=== PATIENT | male | born 1955 | race Caucasian/White ===

== ENCOUNTER 2020-10-06 07:07 | Outpatient (CLI) | payer MEDICARE, OTHER, SELFPAY ==
[2020-10-06 08:14] LABS: Potassium 4.2 mmol/L (3.4-5.0)
[2020-10-06 08:15] LABS: Cholesterol 188 mg/dL (0-200); HDL Direct 51 mg/dL; Triglycerides 207 mg/dL (<150)
[2020-10-06 08:19] LABS: Anion Gap 6 mmol/L (8-16); Blood Urea Nitrogen 22 mg/dL (9-20); Calcium 9.4 mg/dL (8.4-10.2); Carbon Dioxide 33 mmol/L (22-30); Chloride 102 mmol/L (98-107); Estimated Glomerular Filt Rate > 60; Glucose 112 mg/dL (75-110); Sodium 141 mmol/L (137-145)
[2020-10-06 08:25] LABS: LDL Cholesterol Direct 39 mg/dL
[2020-10-06 08:46] LABS: Prostate Specific Antigen 0.8 ng/mL (< OR = 4.0)
== END 2020-10-06 07:08 | disposition home or self-care (01) ==
LOC: ANHLAB 07:09
PROVIDERS: Nurse Practitioner; PCP Internal Medicine; Visit Provider Internal Medicine
DX: Z12.5 Encounter for screening for malignant neoplasm of prostate (principal); E78.5 Hyperlipidemia, unspecified; I10 Essential (primary) hypertension
CPT/HCPCS: 36415; 80048; 80061; 84153; G0103

== ENCOUNTER → 2021-07-25 10:50 | Outpatient (CLI) | payer MEDICARE, OTHER, SELFPAY ==
--- NOTE | ~2021-07-25 | XR_ITS ---
EXAMINATION: XR chest 2V 07/25/2021 11:18 INDICATION: Dyspnea. Possible contact exposure. PROCEDURE: 2 view chest COMPARISON: 09/05/2005 FINDINGS: The lungs are clear. The cardiomediastinal silhouette is within normal limits. There are no pleural effusions. There is no pneumothorax suspected. IMPRESSION: 1: NO ACUTE CARDIOPULMONARY DISEASE. Reviewed, dictated and finalized at location A.
== END ==
PROVIDERS: PCP Internal Medicine; Visit Provider Internal Medicine
DX: Z77.29 Contact with and (suspected) exposure to other hazardous substances (principal)
CPT/HCPCS: 71046

== ENCOUNTER 2021-07-30 07:42 | Outpatient (CLI) | payer MEDICARE, OTHER, SELFPAY ==
--- NOTE | ~2021-07-30 | CT_ITS ---
EXAMINATION: CT abdomen pelvis wo con DATE: 07/30/2021 08:04 INDICATION: Abdominal pain TECHNIQUE: Computed tomography (CT) of the abdomen and pelvis was performed without intravenous contr ast. Automated exposure control and iterative reconstruction technique were employed. Exam dose: 854 .28 mGy-cm total exam DLP. COMPARISON: None. FINDINGS: The lung bases are clear. Normal heart size. No pericardial or pleural effusion. The liver, gallbladder, bile ducts, spleen, pancreas and pancreatic duct and adrenal glands are unrem arkable. There are multiple bilateral renal nonobstructing calculi, measuring 5 mm or less. 5.3 cm upper pole right renal cyst. Moderate prostate enlargement, moderate bladder wall thickening. Normal caliber and minimal calcification of the abdominal aorta. No intraperitoneal or retroperitonea l or pelvic mass lesion or adenopathy or ascites. Fat-containing umbilical hernia. Small fat-containing right inguinal hernia. Normal appendix. There are multiple left colonic diverticula; no evidence of diverticulitis. No bowel obstruction or intraperitoneal free air. T11 vertebral body benign hemangioma. Degenerative changes of the thoracic and lumbar spine including severe degenerative disc disease and associated mild retrolisthesis at L5-S1, degenerative change at the apophyseal joints with minimal grade 1 anterolisthesis at L4-5. No suspicious osteolytic or oste oblastic lesions. Bilateral hip osteoarthritis. IMPRESSION: Bilateral nephrolithiasis; no ureteral calculus or hydroureteronephrosis 5.3 cm upper pole right renal cyst Moderate prostate enlargement, bladder wall thickening Multiple left colonic diverticula; no CT evidence of diverticulitis Normal appendix Reviewed, dictated and finalized at Location A. Reviewed, dictated and finalized at location B. IMPRESSION: Bilateral nephrolithiasis; no ureteral calculus or hydroureteronep hrosis 5.3 cm upper pole right renal cyst Moderate prostate enlargement, bladder wall thickening Multiple left colonic diverticula; no CT evidence of diverticulitis Normal appendix
== END 2021-07-30 07:43 | disposition home or self-care (01) ==
LOC: ANHIMG 07:44
PROVIDERS: PCP Internal Medicine; Visit Provider Internal Medicine
DX: R10.9 Unspecified abdominal pain (principal)
CPT/HCPCS: 74176

== ENCOUNTER 2021-10-14 07:27 | Outpatient (CLI) | payer MEDICARE, OTHER, SELFPAY ==
[2021-10-14 09:18] LABS: Alanine Aminotransferase 39 U/L (4-50); Albumin Level 4.6 g/dL (3.5-5.1); Alkaline Phosphatase 59 U/L (38-126); Anion Gap 7 mmol/L (8-16); Aspartate Amino Transferase 38 U/L (17-59); Bilirubin,Total 0.6 mg/dL (0.2-1.3); Blood Urea Nitrogen 17 mg/dL (9-20); Calcium 9.5 mg/dL (8.4-10.2); Carbon Dioxide 30 mmol/L (22-30); Chloride 102 mmol/L (98-107); Cholesterol 186 mg/dL (0-200); Estimated Glomerular Filt Rate > 60; Glucose 115 mg/dL (65-110); HDL Direct 51 mg/dL; Sodium 139 mmol/L (137-145); Triglycerides 198 mg/dL (<150)
[2021-10-14 09:30] LABS: LDL Cholesterol Direct 44 mg/dL
[2021-10-14 09:49] LABS: Prostate Specific Antigen 1.8 ng/mL (< OR = 4.0)
== END 2021-10-14 07:28 | disposition home or self-care (01) ==
PROVIDERS: PCP Internal Medicine; Visit Provider Internal Medicine
DX: E78.5 Hyperlipidemia, unspecified (principal); I10 Essential (primary) hypertension; Z79.899 Other long term (current) drug therapy; Z12.5 Encounter for screening for malignant neoplasm of prostate
CPT/HCPCS: 36415; 80053; 80061; 84153; G0103

== ENCOUNTER → 2022-03-13 14:42 | Outpatient (CLI) | payer MEDICARE, OTHER, SELFPAY ==
--- NOTE | ~2022-03-13 | XR_ITS ---
XR hand LT min 3V DATE: 03/13/2022 14:55 INDICATION: Left hand pain TECHNIQUE: 3 views COMPARISON: December 22, 2016 left first digit FINDINGS: Diffuse osteopenia. There is severe osteoarthritic change at the first carpometacarpal joint. There is osteoarthritis at the triscaphe joint. There is mild osteoarthritis at the interphalangeal joints. Likely benign degenerative cyst of the distal capitate bone. No erosive change is evident. No fracture, dislocation, periosteal reaction or bone destruction or chondrocalcinosis. IMPRESSION: Polyarticular osteoarthritis, most pronounced at the first carpometacarpal joint Osteopenia Reviewed, dictated and finalized at location B. IMPRESSION: Polyarticular osteoarthritis, most pronounced at the first carpomet acarpal joint Osteopenia
== END ==
PROVIDERS: PCP Internal Medicine; Visit Provider Internal Medicine
DX: M79.646 Pain in unspecified finger(s) (principal); M19.042 Primary osteoarthritis, left hand; M85.88 Other specified disorders of bone density and structure, other site
CPT/HCPCS: 73130

== ENCOUNTER 2022-04-21 07:08 | Outpatient (CLI) | payer MEDICARE, OTHER, SELFPAY ==
[2022-04-21 08:36] LABS: Alanine Aminotransferase 33 U/L (6-50); Albumin Level 4.4 g/dL (3.5-5.1); Alkaline Phosphatase 50 U/L (38-126); Anion Gap 5 mmol/L (8-16); Aspartate Amino Transferase 35 U/L (17-59); Bilirubin,Total 0.7 mg/dL (0.2-1.3); Blood Urea Nitrogen 23 mg/dL (9-20); Calcium 8.4 mg/dL (8.4-10.2); Carbon Dioxide 28 mmol/L (22-30); Chloride 106 mmol/L (98-107); Estimated Glomerular Filt Rate > 60; Glucose 114 mg/dL (65-110); Sodium 139 mmol/L (137-145)
[2022-04-21 10:31] LABS: Hemoglobin A1C 5.6 % (<5.7)
== END 2022-04-21 07:09 | disposition home or self-care (01) ==
LOC: ANHLAB 07:12
PROVIDERS: PCP Internal Medicine; Visit Provider Nurse Practitioner
DX: R73.9 Hyperglycemia, unspecified (principal); I10 Essential (primary) hypertension; Z79.899 Other long term (current) drug therapy
CPT/HCPCS: 36415; 80053; 83036

== ENCOUNTER 2022-11-08 07:08 | Outpatient (CLI) | payer MEDICARE, OTHER, SELFPAY ==
[2022-11-08 08:03] LABS: Alanine Aminotransferase 48 U/L (6-50); Albumin Level 4.5 g/dL (3.5-5.1); Alkaline Phosphatase 61 U/L (38-126); Anion Gap 7 mmol/L (8-16); Aspartate Amino Transferase 35 U/L (17-59); Bilirubin,Total 0.8 mg/dL (0.2-1.3); Blood Urea Nitrogen 21 mg/dL (9-20); Carbon Dioxide 30 mmol/L (22-30); Chloride 105 mmol/L (98-107); Cholesterol 193 mg/dL (0-200); Estimated Glomerular Filt Rate > 60; Glucose 111 mg/dL (65-110); HDL Direct 52 mg/dL; Potassium 3.8 mmol/L (3.4-5.0); Sodium 142 mmol/L (137-145); Triglycerides 224 mg/dL (<150)
[2022-11-08 08:13] LABS: LDL Cholesterol Direct 39 mg/dL
[2022-11-08 08:54] LABS: Hemoglobin A1C 5.9 % (<5.7)
== END 2022-11-08 07:09 | disposition home or self-care (01) ==
PROVIDERS: PCP Internal Medicine; Visit Provider Internal Medicine
DX: Z12.5 Encounter for screening for malignant neoplasm of prostate (principal); R73.9 Hyperglycemia, unspecified; E78.5 Hyperlipidemia, unspecified; Z79.899 Other long term (current) drug therapy; I10 Essential (primary) hypertension
CPT/HCPCS: 36415; 80053; 80061; 83036; 84153; G0103

== ENCOUNTER 2023-11-21 07:24 | Outpatient (CLI) | payer MEDICARE, OTHER, SELFPAY ==
[2023-11-21 08:05] LABS: Basophils Percent Auto 0.5 % (0.2-1.2); Eosinophils Absolute Auto 0.1 K/mm3 (0-0.3); Hematocrit 45.3 % (42.0-52.0); Hemoglobin 14.5 g/dL (14.0-18.0); Immature Granulocyte Absolute 0.01 K/mm3 (0.00-0.031); Immature Granulocyte Percent A 0.2 % (0-0.5); Lymphocytes Absolute Auto 2.27 K/mm3 (0.9-3.2); Lymphocytes Percent Auto 35.3 % (18.3-44.2); Mean Corpuscular Hemoglobin 29.8 pg (26-34); Mean Platelet Volume 9.8 fl (7.4-10.4); Monocytes Absolute Auto 0.6 K/mm3 (0.1-0.6); Monocytes Percent Auto 9.5 % (2.6-8.5); Neutrophils Absolute Auto 3.4 K/mm3 (1.3-6.7); Neutrophils Percent Auto 52.5 % (45.5-73.1); Platelet Count Result 241 k/mm3 (150-375); Red Blood Count 4.87 M/mm3 (4.6-6.20); Red Cell Distribution Width 13.2 % (11.5-14.5); White Blood Count 6.4 K/mm3 (4.5-10.0)
[2023-11-21 08:18] LABS: Hemoglobin A1C 5.8 % (<5.7)
[2023-11-21 08:24] LABS: Alanine Aminotransferase 32 U/L (6-50); Albumin Level 4.2 g/dL (3.5-5.1); Alkaline Phosphatase 48 U/L (38-126); Anion Gap 6 mmol/L (8-16); Aspartate Amino Transferase 35 U/L (17-59); Bilirubin,Total 0.9 mg/dL (0.2-1.3); Blood Urea Nitrogen 21 mg/dL (9-20); Calcium 8.8 mg/dL (8.4-10.2); Carbon Dioxide 29 mmol/L (22-30); Chloride 107 mmol/L (98-107); Cholesterol 169 mg/dL (0-200); Estimated Glomerular Filt Rate > 60; Glucose 109 mg/dL (65-110); HDL Direct 54 mg/dL; Potassium 4.2 mmol/L (3.4-5.0); Sodium 142 mmol/L (137-145); Triglycerides 120 mg/dL (<150)
[2023-11-21 08:29] LABS: LDL Cholesterol Direct 57 mg/dL
== END 2023-11-21 07:25 | disposition home or self-care (01) ==
PROVIDERS: PCP Family Medicine; Visit Provider Nurse Practitioner Family
DX: Z13.0 Encounter for screening for diseases of the blood and blood-forming organs and certain disorders involving the immune mechanism (principal); Z13.228 Encounter for screening for other metabolic disorders; I10 Essential (primary) hypertension; Z13.220 Encounter for screening for lipoid disorders; Z12.5 Encounter for screening for malignant neoplasm of prostate; R73.9 Hyperglycemia, unspecified; Z68.28 Body mass index [BMI] 28.0-28.9, adult
CPT/HCPCS: 36415; 80053; 80061; 83036; 84153; 85025; G0103

== ENCOUNTER 2024-02-05 00:08 | Day surgery (SDC) | payer MEDICARE, OTHER, SELFPAY ==
[2024-01-25 12:03] VITALS: BMI 30.2
--- NOTE | 2024-02-03 14:20 | SUR.PREOP ---
Patient called regarding upcoming procedure. Voicemail left regarding appointment times.
[2024-02-05 07:03] VITALS: BP 117/66; PULSE 82; RESP 18; TEMP 36.4; O2SAT 97
[2024-02-05] MEDS: LACTATED RINGERS 1,000 ML 150 ML IV CONT (07:14)
--- NOTE | 2024-02-05 08:10 | WPDANESEPPF ---
Anes - Initial Pre Proc Eval Procedure: Operation Date: 02/05/24 08:30 Proposed Procedures p Colonoscopy - Daniele Maynard MD Date/Time: 02/05/24 08:10 Surgeon: Daniele Maynard MD Pre Op Diagnosis: Hemorrhage of anus and rectum Patient Data Age: 68 Gender: M Height: 1.78 m Weight: 90.1 kg Last Vital Signs Temp 97.5 F L 02/05/24 07:03 Pulse 82 02/05/24 07:03 Resp 18 02/05/24 07:03 BP 117/66 02/05/24 07:03 Pulse Ox 97 02/05/24 07:03 O2 Del Method Room Air 02/05/24 07:03 Allergies Allergy/AdvReac Type Severity Reaction Status Date / Time Iodinated Contrast Media Allergy Unknown Nausea Verified 02/05/24 07:00 iodine Allergy Unknown Nausea Verified 02/05/24 07:00 Iodine and Iodide Containing Allergy Unknown Nausea Verified 02/05/24 07:00 Produc ioversol Allergy Unknown Nausea Verified 02/05/24 07:00 Contrast Media AdvReac Intermediate NAUSEA Uncoded 02/05/24 07:00 Home Medications Medication Instructions Recorded Confirmed Type turmeric root extract 1,053 mg 1,076 mg PO DAILY 07/25/21 01/26/24 History tablet fluticasone propionate 0.05 % 1 applic topical BID #30 grams 04/25/22 01/26/24 Rx topical cream naproxen 375 mg tablet 375 mg PO BID PRN pain #180 tabs 11/07/22 01/26/24 Rx nystatin-triamcinolone 100,000 1 applic topical BID #60 grams 11/07/22 01/26/24 Rx unit/g-0.1 % topical cream [id number]-cxa-xdjmg 150 mcg-vit K1 1 tablet PO DAILY 05/14/23 01/26/24 History 30 mcg-lycop 300 mcg-lutein tablet (Centrum Minis Men 50 Plus) zinc acetate 50 mg (zinc) capsule 50 mg PO DAILY 05/14/23 01/26/24 History (Galzin) fluticasone propionate 50 2 spray intranasal DAILY #16 grams 05/25/23 01/26/24 Rx mcg/actuation nasal spray,suspension loratadine 10 mg tablet 10 mg PO DAILY #30 tabs 05/25/23 01/26/24 Rx amlodipine 5 mg tablet 5 mg PO DAILY #90 tabs 11/30/23 01/26/24 Rx famotidine 40 mg tablet (Pepcid) 40 mg PO DAILY #90 tabs 11/30/23 01/26/24 Rx valsartan 160 mg tablet 160 mg PO DAILY #90 tabs 11/30/23 01/26/24 Rx nystatin 100,000 unit/gram topical 1 applic topical TID #60 grams 01/26/24 02/05/24 Rx powder Patient hx anesthesia problems: none Family hx anesthesia problems: none Results Review: All pre-operative results and documents have been reviewed as part of the pre-operative evaluation. [facility] Past Medical History Medical History Acne Arthritis Cervicalgia Headache Right corneal abrasion Surgical History Surgical History History of hand surgery History of right knee surgery Hx of hemorrhoidectomy Family History Family History Father Hypertension Family history of chronic obstructive pulmonary disease Mother Hypertension Sibling Hypertension Grandparent Family history of heart disease in male family member before age 55 Other Family history of arthritis Family history of cardiovascular disease Social History Social History Smoking status: Never smoker Second hand tobacco smoke exposure: No Alcohol intake: current Drinks per week: 1 Alcohol use details: occasionally Substance use: never Substance use type: does not use Lack of Transportation: No Lack of Food: Never True Current Housing: I Have Housing Concerned About Future Housing: No Difficulty Paying Gas/Electric Bills: No Difficulty Paying for Meds: No Currently Unemployed: No Education: High School Diploma/GED Difficulty w/ Childcare or Family Care: No Living arrangements: with family Spiritual care concerns: No Anes - Eval Final PreProcedure Day of Procedure 02/05/24 08:10 Patient weight: normal Heart: regular rate and rhythm Lungs: clear to auscultation Airway: Mallampati scale
--- NOTE | 2024-02-05 08:30 | PM.HPGS ---
History of Present Illness History of Present Illness Consent: Risks, benefits, and alternatives have been discussed and questions answered. Patient agrees to proceed with procedure. Chief complaint: Hemorrhage of anus and rectum Narrative: Bart Beltran is a 68 year old male here for screening colonoscopy, last one 10 years ago Review of Systems Review of Systems: All systems reviewed & are unremarkable except as noted in HPI and below PMFSH Past Medical History Medical History Acne Arthritis Cervicalgia Headache Right corneal abrasion Surgical History Surgical History History of hand surgery History of right knee surgery Hx of hemorrhoidectomy Family History Family History Father Hypertension Family history of chronic obstructive pulmonary disease Mother Hypertension Sibling Hypertension Grandparent Family history of heart disease in male family member before age 55 Other Family history of arthritis Family history of cardiovascular disease Social History Social History Smoking status: Never smoker Second hand tobacco smoke exposure: No Alcohol intake: current Drinks per week: 1 Alcohol use details: occasionally Substance use: never Substance use type: does not use Lack of Transportation: No Lack of Food: Never True Current Housing: I Have Housing Concerned About Future Housing: No Difficulty Paying Gas/Electric Bills: No Difficulty Paying for Meds: No Currently Unemployed: No Education: High School Diploma/GED Difficulty w/ Childcare or Family Care: No Living arrangements: with family Spiritual care concerns: No Meds Home Medications and Allergies Home Medications Medication Instructions Recorded Confirmed Type turmeric root extract 1,053 mg 1,076 mg PO DAILY 07/25/21 01/26/24 History tablet fluticasone propionate 0.05 % 1 applic topical BID #30 grams 04/25/22 01/26/24 Rx topical cream naproxen 375 mg tablet 375 mg PO BID PRN pain #180 tabs 11/07/22 01/26/24 Rx nystatin-triamcinolone 100,000 1 applic topical BID #60 grams 11/07/22 01/26/24 Rx unit/g-0.1 % topical cream aqdlhglg-tsa-xyaex 150 mcg-vit K1 1 tablet PO DAILY 05/14/23 01/26/24 History 30 mcg-lycop 300 mcg-lutein tablet (Centrum Minis Men 50 Plus) zinc acetate 50 mg (zinc) capsule 50 mg PO DAILY 05/14/23 01/26/24 History (Galzin) fluticasone propionate 50 2 spray intranasal DAILY #16 grams 05/25/23 01/26/24 Rx mcg/actuation nasal spray,suspension loratadine 10 mg tablet 10 mg PO DAILY #30 tabs 05/25/23 01/26/24 Rx amlodipine 5 mg tablet 5 mg PO DAILY #90 tabs 11/30/23 01/26/24 Rx famotidine 40 mg tablet (Pepcid) 40 mg PO DAILY #90 tabs 11/30/23 01/26/24 Rx valsartan 160 mg tablet 160 mg PO DAILY #90 tabs 11/30/23 01/26/24 Rx nystatin 100,000 unit/gram topical 1 applic topical TID #60 grams 01/26/24 02/05/24 Rx powder Allergies Allergy/AdvReac Type Severity Reaction Status Date / Time Iodinated Contrast Media Allergy Unknown Nausea Verified 02/05/24 07:00 iodine Allergy Unknown Nausea Verified 02/05/24 07:00 Iodine and Iodide Containing Allergy Unknown Nausea Verified 02/05/24 07:00 Produc ioversol Allergy Unknown Nausea Verified 02/05/24 07:00 Contrast Media AdvReac Intermediate NAUSEA Uncoded 02/05/24 07:00 Vital Signs Vital Signs - 24 hr 02/05/24 07:03 Temperature 97.5 F L Pulse Rate 82 Respiratory Rate 18 Blood Pressure 117/66 Pulse Oximetry 97 Oxygen Delivery Room Air Exam Const: General: comfortable and no acute distress HENMT: Face/Nose/Sinus: Normal nares present Eyes: General: appearance normal, both eyes and all related structures Neck: Neck: no JVD Resp: Auscultation: clear to auscultation bila
[2024-02-05 08:46] VITALS: BP 99/65; PULSE 80; RESP 14; O2SAT 93
[2024-02-05 08:56] VITALS: BP 116/83; PULSE 79; RESP 22; O2SAT 98
[2024-02-05 09:06] VITALS: BP 117/84; PULSE 81; RESP 25; O2SAT 97
== END 2024-02-05 09:08 | disposition home or self-care (01) ==
PROVIDERS: PCP Nurse Practitioner; Visit Provider Internal Medicine Gastroenterology
PROC: 0DJD8ZZ Inspection of Lower Intestinal Tract, Via Natural or Artificial Opening Endoscopic (ICD-10-PCS; CPT 45378; principal; 2024-02-05 08:30)
DX: Z12.11 Encounter for screening for malignant neoplasm of colon (principal); D12.2 Benign neoplasm of ascending colon; K57.30 Diverticulosis of large intestine without perforation or abscess without bleeding; K64.8 Other hemorrhoids
CPT/HCPCS: 45385; 88305; J2704; J7120

== ENCOUNTER 2024-02-26 13:33 | Outpatient (CLI) | payer MEDICARE, OTHER, SELFPAY ==
--- NOTE | ~2024-02-26 | CT_ITS ---
EXAMINATION: CT abdomen pelvis wo con DATE: 02/26/2024 13:59 INDICATION: Abdominal pain TECHNIQUE: Computed tomography (CT) of the abdomen and pelvis was performed without intravenous contr ast. Automated exposure control and iterative reconstruction technique were employed. The dose-length product was 1011.73 mGy-cm. COMPARISON: 07/30/2021 FINDINGS: Lung bases are clear. Heart size normal. No pericardial or pleural effusion. Liver, gallbladder, sple en, pancreas and bilateral adrenal glands are normal. A couple right renal cysts the larger exophytic cyst measuring 6.5 cm the upper pole. Bilateral nonobstructing nephrolithiasis with couple 1 mm ston es in the right kidney and 3 stones measuring up to 2-2 mm at the lower pole of the left kidney. Ther e are few diverticula along the sigmoid colon without adjacent inflammatory change to suggest diverti culitis. The appendix is not visualized. No pericecal inflammatory change to suggest acute appendicit is. No bowel obstruction. Bladder is normal. Prostatomegaly measuring 4.8 x 3.4 cm. Small fat-contain ing right inguinal hernia. No free intraperitoneal gas or fluid. No pathologically enlarged abdominal or pelvic lymphadenopathy. Severe spondylosis of the lumbosacral junction with mild to moderate spon dylosis in the more cephalad lumbar and lower thoracic spine. T11 hemangioma. IMPRESSION: 1. No acute intra-abdominal/pelvic process. 2. Bilateral nonobstructing nephrolithiasis. 3. Mild sigmoid diverticulosis. 4. Prostatomegaly. Reviewed, dictated and finalized at location A.
== END 2024-02-26 13:34 | disposition home or self-care (01) ==
PROVIDERS: PCP Nurse Practitioner; Visit Provider Nurse Practitioner
DX: N20.0 Calculus of kidney (principal); K57.30 Diverticulosis of large intestine without perforation or abscess without bleeding; N40.0 Benign prostatic hyperplasia without lower urinary tract symptoms
CPT/HCPCS: 74176

== ENCOUNTER 2024-04-22 09:56 | Outpatient (CLI) | payer MEDICARE, OTHER, SELFPAY ==
--- NOTE | ~2024-04-22 | XR_ITS ---
XR hand RT min 3V Ordering provider: Latricia Rangel MD History: . M18.9 - Osteoarthritis of first carpometacarpal joint, un... . Comparison: None. FINDINGS: BONES: Minimal subluxation of the first metacarpal bone. status post removal of the trapezium is note d Clinical correlation advised. Otherwise, No acute fracture or dislocation. JOINT SPACES: Irregularity of the outline of the base of the first metacarpal bone is noted suggestiv e of osteoarthritic changes. Osteoarthritic changes also seen in the first metacarpophalangeal joint. Narrowing of the distal interphalangeal joint of the second, third, fourth and fifth fingers is also seen. SOFT TISSUES: Normal. IMPRESSION: No acute osseous abnormality right hand. Absent trapezium bone. Osteoarthritic changes. Reviewed, dictated and finalized at location A.
--- NOTE | ~2024-04-22 | XR_ITS ---
XR hand LT min 3V Ordering provider: Latricia Rangel MD History: . M18.9 - Osteoarthritis of first carpometacarpal joint, un... . Comparison: None. FINDINGS: BONES: No acute fracture or dislocation. JOINT SPACES: Narrowing of the first carpometacarpal joint suggestive of osteoarthritic changes. Mini mal narrowing of the proximal and distal interphalangeal joints suggestive of osteoarthritic changes. SOFT TISSUES: Unremarkable. IMPRESSION: No acute osseous abnormality left hand. Osteoarthritic changes. Reviewed, dictated and finalized at location A.
== END 2024-04-22 09:57 ==
LOC: MICIMG 09:59
PROVIDERS: PCP Internal Medicine; Visit Provider Plastic Surgery
DX: M19.041 Primary osteoarthritis, right hand (principal); M19.042 Primary osteoarthritis, left hand
CPT/HCPCS: 73130

== ENCOUNTER 2024-05-02 10:57 | Outpatient (CLI) | payer MEDICARE, OTHER, SELFPAY ==
--- NOTE | ~2024-05-02 | CT_ITS ---
EXAMINATION: CT UE LT wo con DATE: 05/02/2024 11:22 INDICATION: Left first carpometacarpal joint osteoarthritis. TECHNIQUE: Computed tomography (CT) of the left hand and wrist was performed without intravenous cont rast. Automated exposure control and iterative reconstruction technique were employed. The dose-lengt h product was 117.56 mGy-cm. COMPARISON: Left hand radiograph 04/22/2024 FINDINGS: Bone alignment is normal. No fracture. There is moderate osteoarthritis of distal radioulna r joint. There is moderate osteoarthritis of triscaphe joint and severe osteoarthritis of first carpo metacarpal joint. There is mild osteoarthritis of first metacarpophalangeal joint and second and thir d distal interphalangeal joints. There is a surgical tunnel in base of first metacarpal. IMPRESSION: 1. Polyarticular osteoarthritis. Reviewed, dictated and finalized at location A.
== END 2024-05-02 10:58 ==
PROVIDERS: PCP Plastic Surgery; Visit Provider Plastic Surgery
DX: M18.12 Unilateral primary osteoarthritis of first carpometacarpal joint, left hand (principal)
CPT/HCPCS: 73200

== ENCOUNTER 2024-05-26 07:25 | Outpatient (CLI) | payer MEDICARE, OTHER, SELFPAY ==
[2024-05-26 08:56] LABS: Hematocrit 44.1 % (42.0-52.0); Hemoglobin 14.5 g/dL (14.0-18.0); Mean Corpuscular HGB Conc 32.9 g/dl (32-36); Mean Corpuscular Hemoglobin 30.7 pg (26-34); Mean Corpuscular Volume 93.2 fl (80-100); Mean Platelet Volume 10.2 fl (7.4-10.4); Platelet Count Result 224 k/mm3 (150-375); Red Blood Count 4.73 M/mm3 (4.6-6.20); Red Cell Distribution Width 13.5 % (11.5-14.5); White Blood Count 5.2 K/mm3 (4.5-10.0)
[2024-05-26 09:26] LABS: LDL Cholesterol Direct 43 mg/dL
[2024-05-26 09:46] LABS: Alanine Aminotransferase 27 U/L (6-50); Anion Gap 8 mmol/L (4-12); Bilirubin,Total 0.7 mg/dL (0.2-1.3); Blood Urea Nitrogen 27 mg/dL (9-20); Calcium 8.6 mg/dL (8.4-10.2); Carbon Dioxide 30 mmol/L (22-30); Chloride 103 mmol/L (98-107); Cholesterol 156 mg/dL (0-200); Estimated Glomerular Filt Rate > 60; Glucose 102 mg/dL (65-110); HDL Direct 51 mg/dL; Sodium 141 mmol/L (137-145); Triglycerides 103 mg/dL (<150)
[2024-05-26 09:50] LABS: Albumin Level 4.4 g/dL (3.5-5.1); Alkaline Phosphatase 39 U/L (38-126); Aspartate Amino Transferase 35 U/L (17-59)
== END 2024-05-26 07:26 | disposition home or self-care (01) ==
PROVIDERS: PCP Internal Medicine; Visit Provider Nurse Practitioner
DX: Z12.5 Encounter for screening for malignant neoplasm of prostate (principal); G47.33 Obstructive sleep apnea (adult) (pediatric); I10 Essential (primary) hypertension; K21.9 Gastro-esophageal reflux disease without esophagitis; K62.5 Hemorrhage of anus and rectum; R73.9 Hyperglycemia, unspecified; Z68.30 Body mass index [BMI] 30.0-30.9, adult; Z99.89 Dependence on other enabling machines and devices; Z79.899 Other long term (current) drug therapy
CPT/HCPCS: 36415; 80053; 80061; 83036; 84153; 85027; G0103

== ENCOUNTER 2024-08-24 07:26 | Outpatient (CLI) | payer MEDICARE, SELFPAY ==
--- NOTE | 2024-08-24 07:50 | ECG_ITS ---
Test Date: 2024-08-24 07:57:40 Measurements Intervals [place] Rate: 66 P: 15 CA: 195 QRS: 6 QRSD: 97 T: 39 QT: 391 QTc: 412 Interpretive Statements SINUS RHYTHM NORMAL ECG No previous ECG available for comparison Electronically Signed On 08-24-2024 10:23:37 CDT by Kenneth Lombardi M.D.
[2024-08-24 07:54] LABS: Add Urine Microscopic? NO; Appearance Urine Clear (Clear); Bilirubin Urine Negative (Negative); Blood Urine Negative (Negative); Color Urine Yellow (Yellow); Glucose Urine UA Negative (Negative); Ketones Urine Negative (Negative); Leukocyte Esterase Ur Negative LEU/UL (Negative); Nitrate Urine Negative (Negative); Protein Urine Negative (Negative); Specific Grav Ur 1.012 (1.001-1.035); Urobilinogen Urine 0.2 mg/dL (<2.0); pH Urine 6.5 (5.0-9.0)
[2024-08-24 07:59] LABS: Basophils Percent Auto 0.5 % (0.2-1.2); Eosinophils Absolute Auto 0.2 K/mm3 (0-0.3); Eosinophils Percent Auto 2.5 % (0-4.4); Hematocrit 43.5 % (42.0-52.0); Hemoglobin 14.4 g/dL (14.0-18.0); Immature Granulocyte Absolute 0.02 K/mm3 (0.00-0.031); Immature Granulocyte Percent A 0.3 % (0-0.5); Lymphocytes Absolute Auto 2.28 K/mm3 (0.9-3.2); Lymphocytes Percent Auto 37.3 % (18.3-44.2); Mean Corpuscular HGB Conc 33.1 g/dl (32-36); Mean Corpuscular Hemoglobin 30.4 pg (26-34); Mean Corpuscular Volume 91.8 fl (80-100); Mean Platelet Volume 9.7 fl (7.4-10.4); Monocytes Absolute Auto 0.6 K/mm3 (0.1-0.6); Monocytes Percent Auto 10.1 % (2.6-8.5); Neutrophils Percent Auto 49.3 % (45.5-73.1); Platelet Count Result 251 k/mm3 (150-375); Red Blood Count 4.74 M/mm3 (4.6-6.20); Red Cell Distribution Width 13.2 % (11.5-14.5); White Blood Count 6.1 K/mm3 (4.5-10.0)
[2024-08-24 08:00] LABS: Anion Gap 8 mmol/L (4-12); Blood Urea Nitrogen 25 mg/dL (9-20); Calcium 9.5 mg/dL (8.4-10.2); Carbon Dioxide 30 mmol/L (22-30); Chloride 102 mmol/L (98-107); Estimated Glomerular Filt Rate > 60; Glucose 112 mg/dL (65-110); Potassium 4.1 mmol/L (3.4-5.0); Sodium 140 mmol/L (137-145)
== END 2024-08-24 07:27 | disposition home or self-care (01) ==
LOC: ANHLAB 07:29
PROVIDERS: PCP Internal Medicine; Visit Provider Orthopaedic Surgery
DX: R53.83 Other fatigue (principal); I10 Essential (primary) hypertension; R73.9 Hyperglycemia, unspecified; G47.33 Obstructive sleep apnea (adult) (pediatric); Z99.89 Dependence on other enabling machines and devices; Z79.899 Other long term (current) drug therapy
CPT/HCPCS: 36415; 80048; 81003; 85025; 93005

== ENCOUNTER 2024-10-18 14:47 | Outpatient (CLI) | payer MEDICARE, OTHER, SELFPAY ==
--- NOTE | ~2024-10-18 | XR_ITS ---
XR forearm LT 2V Ordering provider: Chalo Gómez DO History: . M79.602 - Pain in left arm . Comparison: None. FINDINGS: BONES: No acute fracture or dislocation. JOINT SPACES: Narrowing of the radiocarpal joint. SOFT TISSUES: Normal. IMPRESSION: No acute osseous abnormality left forearm. Reviewed, dictated and finalized at location A. [employer]CH[employer]ICIAN
== END 2024-10-18 14:48 | disposition home or self-care (01) ==
PROVIDERS: PCP Internal Medicine; Visit Provider Internal Medicine
DX: M79.602 Pain in left arm (principal)
CPT/HCPCS: 73090

== ENCOUNTER 2024-11-03 11:46 | Outpatient (CLI) | payer MEDICARE, OTHER, SELFPAY ==
[2024-11-03 13:22] LABS: Basophils Percent Auto 0.6 % (0.2-1.2); Eosinophils Absolute Auto 0.2 K/mm3 (0-0.3); Eosinophils Percent Auto 2.5 % (0-4.4); Hematocrit 43.6 % (42.0-52.0); Hemoglobin 14.6 g/dL (14.0-18.0); Immature Granulocyte Absolute 0.02 K/mm3 (0.00-0.031); Immature Granulocyte Percent A 0.3 % (0-0.5); Mean Corpuscular HGB Conc 33.5 g/dl (32-36); Mean Corpuscular Hemoglobin 30.3 pg (26-34); Mean Corpuscular Volume 90.5 fl (80-100); Mean Platelet Volume 9.3 fl (7.4-10.4); Monocytes Absolute Auto 0.7 K/mm3 (0.1-0.6); Monocytes Percent Auto 10.8 % (2.6-8.5); Neutrophils Absolute Auto 3.5 K/mm3 (1.3-6.7); Neutrophils Percent Auto 52.8 % (45.5-73.1); Platelet Count Result 230 k/mm3 (150-375); Red Blood Count 4.82 M/mm3 (4.6-6.20); White Blood Count 6.7 K/mm3 (4.5-10.0)
[2024-11-03 13:30] LABS: Add Urine Microscopic? NO; Appearance Urine Clear (Clear); Bilirubin Urine Negative (Negative); Blood Urine Negative (Negative); Color Urine Yellow (Yellow); Glucose Urine UA Negative (Negative); Ketones Urine Negative (Negative); Leukocyte Esterase Ur Negative LEU/UL (Negative); Nitrate Urine Negative (Negative); Protein Urine Negative (Negative); Specific Grav Ur 1.016 (1.001-1.035); Urobilinogen Urine 0.2 mg/dL (<2.0); pH Urine 6.5 (5.0-9.0)
[2024-11-03 13:35] LABS: INR 0.9
[2024-11-03 13:36] LABS: Partial Thromboplastin Time 32.9 Seconds (22.3-36.8)
[2024-11-03 13:39] LABS: Albumin Level 4.4 g/dL (3.5-5.1); Anion Gap 3 mmol/L (4-12); Blood Urea Nitrogen 19 mg/dL (9-20); Calcium 9.4 mg/dL (8.4-10.2); Carbon Dioxide 32 mmol/L (22-30); Chloride 104 mmol/L (98-107); Estimated Glomerular Filt Rate > 60; Glucose 87 mg/dL (65-110); Sodium 139 mmol/L (137-145)
[2024-11-03 13:45] LABS: Hemoglobin A1C 5.9 % (<5.7)
[2024-11-03 14:33] LABS: MRSA (PCR) NOT DETECTED (NOT DETECTE)
[2024-11-03 18:17] LABS: Urine Cotinine NEGATIVE
== END 2024-11-03 11:47 | disposition home or self-care (01) ==
PROVIDERS: PCP Internal Medicine; Visit Provider Orthopaedic Surgery
DX: Z01.812 Encounter for preprocedural laboratory examination (principal); M17.12 Unilateral primary osteoarthritis, left knee; Z79.899 Other long term (current) drug therapy
CPT/HCPCS: 80048; 80307; 81003; 82040; 83036; 85025; 85610; 85730; 86850; 86900; 86901; 87641

== ENCOUNTER 2024-11-18 02:00 | Inpatient (IN) | payer MEDICARE, OTHER, SELFPAY ==
[2024-11-03 12:13] VITALS: BP 138/86; PULSE 69; RESP 16; TEMP 36.1; O2SAT 100; BMI 29.5
--- NOTE | 2024-11-03 12:32 | PC.NURSE ---
Addendum entered by Harika Gilmore RN 11/03/24 12:39: Pt aware surgery time is 10:30am on 11/16/24 Original Note: Report to the Outpatient Waiting Room, entrance under the green pavilion located off [facility], at time __0830am on date __11/16/24 . Planned Procedure Time: .? Time changes happen often and if your time is changed the preop area will call you the afternoon before. - You and your visitor will be asked to self-screen and do not enter if you have any COVID symptoms. Please call surgeon if you need to reschedule. - A mask is optional within the hospital at this time. Patients may have clear liquids (water, carbonated beverages, clear teas, apple juice) until 3 hours prior to surgery with a maximum of 20 ounces. - No food from midnight until time of surgery and no smoking. This includes no chewing gum, candy or mints. (0730am) Take only the following medications with a SIP of water on the morning of surgery: ____Amlodipine and Tylenol if needed DO NOT STOP ANY OF YOUR OTHER PRESCRIPTION MEDICATIONS PRIOR TO SURGERY EXCEPT THE FOLLOWING Medications to discontinue per physician Hold all vitamins, supplements, NSAIDS ( motrin, aleve, Naproxyn)[address] Edwards Date to take last dose___11/08/24 Please no make-up, nail syrian, hairspray, perfume, deodorant, or body powder the day of surgery.? No jewelry (including any body piercings) or valuables the day of surgery, leave them at home.? Please take a shower or bath the night before, or the morning of, surgery with an antibacterial soap.? Wear comfortable, loose fitting clothing.?Hibicleanse scrub per - Jewelry must be removed prior to entering the operating room.? Rings and piercings that are not removed may be cut off. - The hospital will not accept responsibility for valuables.? - Please leave all valuables, including medications, at home the day of surgery. If you are going home after surgery, a licensed train driver must drive you home.? - NO public transportation without another adult if you receive anesthesia. - We recommend that an adult stay with you for 24 hours following discharge. - We also recommend that you do not drive, make important decision, drink alcoholic beverages, or take any drugs that were not prescribed by your health care provider for at least 24 hours after your discharge time. Follow any additional instructions given to you from your surgeon. Telephone instructions given to ___Patient and asked if any additional questions and then verbalized understanding. Patient advised to call surgeon office or pre surgery nurse liaison [phone] if any additional questions.
[2024-11-16] VITALS (10 sets, daily range): BP systolic 119–140; BP diastolic 76–94; PULSE 76–109; RESP 12–18; TEMP 36.1–36.8; O2SAT 93–99
--- NOTE | 2024-11-16 07:14 | WPDHPUPDATE1 ---
History and Physical Update Update Date/Time: 11/16/24 07:14 History and Physical has been reviewed, including an updated exam of the patient. There are NO changes in the patient's condition. Risks, benefits, and alternatives have been discussed and questions answered. Patient agrees to proceed with procedure.
[2024-11-16] MEDS: LACTATED RINGERS 1,000 ML 30 ML IV CONT ×2 (09:00→14:25)
[2024-11-16] MEDS: ACETAMINOPHEN 500 MG TABLET 1000 MG PO (09:00)
[2024-11-16] MEDS: TRANEXAMIC ACID 1,000MG/ISO100 1,000 MG/100 ML BAG 200 MG IVPB (09:59)
--- NOTE | 2024-11-16 11:43 | WPDANESPNB ---
Anes - Peripheral Nerve Block Date/Time: 11/16/24 11:43 I have discussed with the patient/family/POA the placement of a peripheral nerve block for post-operative pain management, including associated risks, benefits, complications, and side effects. Alternative methods of post-operative analgesia were detailed. Questions were solicited and answers provided to the satisfaction of the patient/family/POA. Time-Out: A pre-procedural Time-Out was completed immediately before starting the procedure and confirmed: Patient Identification, Site, Procedure, Patient Position and the Availability of Requisite Equipment. Clinical Indications: Acute post-operative pain management requested by the operative surgeon. Nerve Block Insertion Note Anes-nerve block: adductor canal left Patient position: supine Skin prep: chlorhexidine Needle: 22 gauge, stimulating, insulated echogenic needle. Needle length: 80 mm Technique: ultrasound Injectate: other (Bupiv 0.5% 15 mls. ) Observations: tolerated well Complications: none Procedure start time:: 1135 Procedure end time:: 1141
--- NOTE | 2024-11-16 11:48 | P.PNAN_ITS ---
Anes - Initial Pre Proc Eval Procedure: Operation Date: 11/16/24 10:30 Proposed Procedures p Left Total Knee Arthroplasty - Ramón Edwards MD Date/Time: 11/16/24 11:48 Surgeon: Ramón Edwards MD Pre Op Diagnosis: Lt Knee DJD Patient Data Age: 69 Gender: M Height: 1.78 m Weight: 91.2 kg Last Vital Signs Temp 97.7 F 11/16/24 08:30 Pulse 76 11/16/24 08:30 Resp 16 11/16/24 08:30 BP 130/77 11/16/24 08:30 Pulse Ox 99 11/16/24 08:30 O2 Del Method Room Air 11/16/24 08:30 Allergies Allergy/AdvReac Type Severity Reaction Status Date / Time Iodinated Contrast Media Allergy Intermediate Nausea Verified 11/16/24 09:47 iodine Allergy Intermediate Nausea Verified 11/16/24 09:47 Iodine and Iodide Containing Allergy Intermediate Nausea Verified 11/16/24 09:47 Produc ioversol Allergy Unknown Nausea Verified 11/16/24 09:47 Contrast Media AdvReac Intermediate NAUSEA Uncoded 11/10/24 13:21 Home Medications ?Medication ?Instructions ?Recorded ?Confirmed ?Type turmeric root extract 1,053 mg 1,076 mg PO DAILY 07/25/21 11/16/24 History tablet nystatin-triamcinolone 100,000 1 applic topical BID #60 grams 11/07/22 11/03/24 Rx unit/g-0.1 % topical cream pgpinspu-pew-ezeos 150 mcg-vit K1 1 tablet PO DAILY 05/14/23 11/16/24 History 30 mcg-lycop 300 mcg-lutein tablet (Centrum Minis Men 50 Plus) zinc acetate 50 mg (zinc) capsule 50 mg PO DAILY 05/14/23 11/16/24 History (Galzin) amlodipine 5 mg tablet 5 mg PO DAILY #90 tabs 04/26/24 11/16/24 Rx famotidine 40 mg tablet (Pepcid) 40 mg PO DAILY #90 tabs 04/26/24 11/16/24 Rx valsartan 160 mg tablet 160 mg PO DAILY #90 tabs 04/26/24 11/16/24 Rx acetaminophen 500 mg tablet 500 mg PO Q6H PRN pain 11/03/24 11/16/24 History (Tylenol Extra Strength) chlorhexidine gluconate 4 % 1 applic topical DAILY #237 mL 11/03/24 11/16/24 Rx topical liquid (Hibiclens) Patient hx anesthesia problems: none Family hx anesthesia problems: none Results Review: All pre-operative results and documents have been reviewed as part of the pre- operative evaluation. [facility] Past Medical History Medical History Left wrist sprain Essential (primary) hypertension Hyperglycemia Osteoarthritis of first carpometacarpal joint Left knee DJD Acne Arthritis Cervicalgia Headache Right corneal abrasion Surgical History Surgical History Hx of hemorrhoidectomy History of right knee surgery History of hand surgery Family History Family History Father Hypertension Family history of chronic obstructive pulmonary disease Mother Hypertension Sibling Hypertension Emphysema of lung Grandparent Family history of heart disease in male family member before age 55 Other Family history of arthritis Family history of cardiovascular disease Social History Social History Smoking status: Never smoker Second hand tobacco smoke exposure: Yes Additional smoking assessment comments: Denies any nicotine in system Alcohol intake: current Drinks per week: 1 Alcohol use details: occasionally Substance use: never Substance use type: does not use Do You Feel Safe in your Home?: Yes Lack of Transportation: No Lack of Food: Never True Current Housing: I Have Housing Concerned About Future Housing: No Difficulty Paying Gas/Electric Bills: No Difficulty Paying for Meds: No Currently Unemployed: No Education: High School Diploma/GED Difficulty w/ Childcare or Family Care: No Living arrangements: with family Additional living arrangements comments: Occupation/Education: retired Additional occupation/education comments: [employer] Gender identity (if verbalized by the patient): Male Spiritual care concerns: No Anes - Eval Final PreProcedure Day of Procedure 11/16/24 11:48 Patient weight: obese Heart: regular rate and rhythm Lungs: clear to auscultation Airway: Mallampati scale class III Neurological: alert and oriented Last oral intake: >/= 8 hours ASA classification: III Emergent: no Anesthetic plan: proceed Anesthesia type and monitoring: general LMA and standard monitoring Results Review: All pre-operative results and documents have been reviewed as part of the pre- operative evaluation. HTN, CARLOS on CPAP, setting 12. Informed Consent: The patient's anesthetic plan and its attendant risks and benefits were discussed with the patient/family/POA. Questions were solicited and answers provided to the satisfaction of the patient/family/POA.
[2024-11-16] MEDS: ceFAZolin 2 GM/D5W 50 ML 2 GM/50 ML BAG IVPB ×2 (12:25→21:19)
[2024-11-16] MEDS: SODIUM CHLORIDE 0.9% IV 37.7 ML, MORPHINE SULFATE INJ (*CRX) 2 MG, ROPivacaine HCL 1% 2... INFILTRATE (12:45)
[2024-11-16] MEDS: TRANEXAMIC ACID 1,000 MG/10 ML AMPUL 1000 MG IV PUSH (13:42)
--- NOTE | 2024-11-16 14:26 | P.OP_ITS ---
Procedure Note - Detailed Date of Procedure 11/16/24 Pre-op Diagnosis Lt Knee DJD Post-op Diagnosis Same Procedure Performed L TKA Surgeon Ramón Edwards MD Anesthesia General Description of Procedure THE LEFT KNEE WAS PREPPED AND DRAPED IN THE STERILE FASHION. THERE WAS A10 DEGREE FLEXION CONTRACTURE. A MIDLINE SKIN INCISION WAS MADE. A MEDIAL PARAPATELLAR ARTHROTOMY WAS MADE. THE PATELLA WAS EVERTED. THERE WAS TRICOMPARTMENT DJD. THERE WAS MINIMAL PATELLA DJD. AN INTRAMEDULLARY ABRAHAM WAS PLACED IN THE FEMUR. A DISTAL FEMORAL CUT WAS MADE IN 5 DEGREES OF VALGUS REMOVING APPROXIMATELY 9 MM OF BONE FROM THE DISTAL FEMUR. THE FEMUR WAS SIZED TO 65. A 65 FEMORAL CUTTING BLOCK WAS PLACED IN 3 DEGREES OF EXTERNAL ROTATION AND IN ALIGNMENT WITH YANDEL'S LINE AND THE TRANSEPICONDYLAR AXIS. ANTERIOR POSTERIOR AND CHAMFER CUTS WERE MADE. THE CUTS WERE EXCELLENT. NEXT AN INTRAMEDULLARY CUTTING GUIDE WAS PLACED IN THE TIBIA. A TRANS TIBIAL CUT WAS MADE ALONG THE LONG AXIS OF THE TIBIA. APPROXIMATELY 10 MM OF BONE WAS REMOVED FROM THE HIGH SIDE OF THE TIBIA. THE TIBIA WAS THEN PLANED TO A SMOOTH SURFACE. POSTERIOR FEMORAL OSTEOPHYTES WERE REMOVED FROM THE FEMORAL CONDYLES. A 71 TIBIAL TRIAL WAS PLACED IN ALIGNMENT WITH THE 1/3 MEDIAL ASPECT OF THE TIBIAL TUBERCLE. THEN A 65 FEMORAL TRIAL COMPONENT WAS PLACED. BOTH HAD EXCELLENT FITS. EVENTUALLY A 10 MM CR POLYETHYLENE TRIAL COMPONENT WAS PLACED. THE KNEE WAS TAKEN THROUGH A RANGE OF MOTION. THE KNEE CAME OUT TO FULL EXTENSION. THERE WAS NO ABNORMAL TILT TO THE PATELLA. THERE WAS GOOD A/P AND VARUS/VALGUS STABILITY. THERE WAS NO EXCESSIVE ROLL BACK WITH FLEXION. THE TRIAL COMPONENTS WERE REMOVED. THEN A 65 FEMORAL COMPONENT AND 71 TIBIAL COMPONENT WITH A 10 CR POLYETHYLENE COMPONENT WERE CEMENTED INTO PLACE. ONCE THE CEMENT WAS HARD THE KNEE WAS TAKEN THROUGH A ROM AGAIN AND FOUND TO BE STABLE WITH NO PATELLA TILT N O EXCESSIVE ROLL BACK WITH FLEXION AND GOOD STABILITY WITH COMPLETE AND FULL EXTENSION. THE KNEE WAS IRRIGATED WITH STERILE WATER FOR ABOUT 3 MINUTES. THE BLEEDERS WERE CAUTERIZED. THE ARTHROTOMY WAS REPAIRED WITH NUMBER 1 VICRYL. THE SUB CUTANEOUS LAYER WITH 2-0 VICRYL AND THE SKIN WITH PARKER. THE WOUND WAS WASHED AND A STERILE DRESSING WAS APPLIED. PATIENT WAS EXTUBATED. Estimated Blood Loss -150.0 Pathology None sent Complications No immediate complications Condition Stable Disposition PACU
[2024-11-16] MEDS: fentaNYL CITRATE INJ (*CRX) 100 MCG/2 ML VIAL 25 MCG IV PUSH ×4 (14:40→14:53)
[2024-11-16] MEDS: oxyCODONE/ACETAMINOPHEN (*CRX) 10-325 MG TABLET 1 TAB PO (16:19)
[2024-11-16] MEDS: SENNA/DOCUSATE SODIUM TABLET 2 TAB PO (16:20)
--- NOTE | 2024-11-16 16:36 | ADMGEN ---
This patient, Bart Beltran, was admitted to [facility] Surg Room 324-02. Patient/family oriented to hospital policies and general routines including ID bracelet, bed and alarms, visiting hours, pain management, procedures, bathroom and other care routines, personal items, smoking policy, room service/diet, and visiting hours. Information on how to activate the Rapid Response Team has been discussed. Patient/Family are encouraged to report perceived risks to care and to ask questions if they do not understand what they are told or what they should do. Post-op LTKA admitted at 1600
[2024-11-16] MEDS: KETOROLAC 15 MG/ML VIAL (*BKC) IV PUSH ×2 (17:35→23:13)
[2024-11-16] MEDS: ASPIRIN 325 MG ENTERIC TABLET PO (21:19)
[2024-11-17] VITALS (8 sets, daily range): BP systolic 120–132; BP diastolic 60–80; PULSE 71–93; RESP 10–20; TEMP 36.2–36.8; O2SAT 93–99
[2024-11-17] MEDS: KETOROLAC 15 MG/ML VIAL (*BKC) IV PUSH ×3 (05:04→16:43)
[2024-11-17] MEDS: ceFAZolin 2 GM/D5W 50 ML 2 GM/50 ML BAG IVPB ×2 (05:04→12:43)
[2024-11-17 06:39] LABS: Basophils Percent Auto 0.3 % (0.2-1.2); Eosinophils Percent Auto 0.4 % (0-4.4); Hematocrit 38.9 % (42.0-52.0); Hemoglobin 12.8 g/dL (14.0-18.0); Immature Granulocyte Absolute 0.03 K/mm3 (0.00-0.031); Immature Granulocyte Percent A 0.3 % (0-0.5); Lymphocytes Absolute Auto 1.47 K/mm3 (0.9-3.2); Lymphocytes Percent Auto 14.8 % (18.3-44.2); Mean Corpuscular HGB Conc 32.9 g/dl (32-36); Mean Corpuscular Volume 91.3 fl (80-100); Mean Platelet Volume 9.6 fl (7.4-10.4); Monocytes Absolute Auto 1.4 K/mm3 (0.1-0.6); Monocytes Percent Auto 14.1 % (2.6-8.5); Neutrophils Percent Auto 70.1 % (45.5-73.1); Platelet Count Result 222 k/mm3 (150-375); Red Blood Count 4.26 M/mm3 (4.6-6.20); Red Cell Distribution Width 13.1 % (11.5-14.5)
[2024-11-17 06:52] LABS: Anion Gap 7 mmol/L (4-12); Blood Urea Nitrogen 17 mg/dL (9-20); Calcium 8.4 mg/dL (8.4-10.2); Carbon Dioxide 28 mmol/L (22-30); Chloride 104 mmol/L (98-107); Estimated CRCL calculation 87 ml/min; Estimated Glomerular Filt Rate > 60; Glucose 97 mg/dL (65-110); Potassium 3.7 mmol/L (3.4-5.0); Sodium 139 mmol/L (137-145)
[2024-11-17] MEDS: oxyCODONE/ACETAMINOPHEN (*CRX) 10-325 MG TABLET 1 TAB PO (08:28)
[2024-11-17] MEDS: MULTIVITAMINS /C LUTEIN (CENTRUM SILVER) TABLET *BKC 1 TAB PO (08:29)
[2024-11-17] MEDS: FAMOTIDINE 20 MG TABLET 40 MG PO (08:29)
[2024-11-17] MEDS: SENNA/DOCUSATE SODIUM TABLET 2 TAB PO ×2 (08:29→16:42)
[2024-11-17] MEDS: amLODIPine BESYLATE 5 MG TABLET PO (08:29)
[2024-11-17] MEDS: polyethylene glycoL 3350 17 GM POWD.PACK PO (08:29)
[2024-11-17] MEDS: ASPIRIN 325 MG ENTERIC TABLET PO ×2 (08:30→20:21)
--- NOTE | 2024-11-17 09:12 | P.PNOP_ITS ---
Progress Note: A&P Assessment and Plan (1) Status post total left knee replacement: Code(s): Z96.652 - Presence of left artificial knee joint Status: Acute Assessment and Plan: POD #1 : Left TKA Continue PT/OT. WBAT. Walker. HIGH FALL RISK. Continue pain control. Ice Knee. Protect skin. DVT prophylaxis with Aspirin. SCDs. Incentive Spirometry Use reviewed. Monitor Dressing. Change prior to discharge. Bowel Regimen. Dispo: Home with Home Health pending progress with PT/OT Time Spent With Patient Time: Reviewed history, exam, radiographs and current labs with attending MD and covering surgeon, Dr. Edwards, who agrees with current plan as indicated above. No further recommendations from Dr. Edwards at this time. Subjective Subjective Date/Time Seen: 11/17/24 09:12 Post Op day: 1 Interval history: POD #1: Left TKA Patient doing well. Pain well controlled. No new concerns. Hopeful for d/c home today. Review of Systems Review of Systems: All systems reviewed & are unremarkable except as noted in HPI and below Constitutional: Constitutional: Denies fever(s) and Denies headache(s) ENT: Denies headache(s) Cardiovascular: Cardiovascular: Denies chest pain, Denies diaphoresis, Denies palpitations and Denies dyspnea Respiratory: Respiratory: Denies dyspnea Gastrointestinal: Gastrointestinal: Denies abdominal pain, Denies constipation, Denies nausea and Denies vomiting Genitourinary: Genitourinary: Denies dysuria and Reports nocturia Musculoskeletal: Musculoskeletal: Reports arthralgias (Left Knee ), Reports joint swelling (Left Knee ) and Reports limited range of motion (ROM limited due to recent surgical intervention LEFT Knee ) Neurologic: Denies headache(s) Endocrine: Endocrine: Denies palpitations Exam Const: General: comfortable and no acute distress Resp: Effort & Inspection: normal respiratory effort Cardio: Rate: regular rate Rhythm: regular rhythm GI: GI Palp: Yes Soft to palpation, No Tenderness to palpation present (GI) and No Guarding due to palpation present (GI) Skin: General skin exam: wounds noted (see extremity assessment ) Wounds: wounds noted (see extremity assessment ) Neuro: Cognition (Neuro): normal cognition Other: NV intact aside from block. Moves toes. Sensation intact to light touch. +ankle dorsiflexion/plantarflexion. Extrem: Left lower extremity: normal to inspection, normal capillary refill, knee Details: tenderness (diffuse ) Location: of the patella, swelling (moderate consistent to recent surgery ), abnormal ROM (limited due to recent surgery ) Details: pain with active ROM and pain with passive ROM and ecchymosis (as expected with recent surgery. NO hematoma. ), lower leg (Negative Brenda's Sign ), ankle (+ankle dorsiflexion/plantarflexion ) Details: normal to inspection, no edema and normal ROM; no tenderness and no swelling and foot Details: normal capillary refill, toes with normal ROM, vascular exam Details: dorsalis pedis pulse present and motor-sensory exam light-touch normal; no tenderness Other: Incision left TKA dressing c/d/i. No hematoma. No signs of infection. No wound dehiscence. Psych: Mental Status: mental status grossly normal Objective Data Vital Signs Vital Signs: Vital Signs - 24 hr 11/16/24 14:25 11/16/24 14:40 11/16/24 14:55 Temperature 36.1 C L Pulse Rate 109 H 97 89 Respiratory Rate 12 12 12 Blood Pressure 140/94 H 132/78 131/82 Pulse Oximetry 96 98 97 Oxygen Delivery Simple Face Mask Simple Face Mask Simple Face Mask Oxygen Flow Rate 6 6 6 11/16/24 15:00 11/16/24 15:10 11/16/24 15:25 Temperature Pulse Rate 92 94 Respiratory Rate 12 14 Blood Pressure 125/87 129/76 Pulse Oximetry 93 95 Oxygen Delivery Room Air Room Air Nasal Cannula Oxygen Flow Rate 2 11/16/24 15:40 11/16/24 16:00 11/16/24 17:12 Temperature 36.1 C L 36.8 C 36.4 C L Pulse Rate 95 91 95 Respiratory Rate 16 18 18 Blood Pressure 119/80 135/86 138/86 Pulse Oximetry 95 98 99 Oxygen Delivery Nasal Cannula Oxygen Flow Rate 2 11/16/24 21:29 11/17/24 00:17 11/17/24 01:29 Temperature 36.6 C 36.2 C L Pulse Rate 97 93 71 Respiratory Rate 13 15 14 Blood Pressure 127/77 132/80 Pulse Oximetry 98 97 99 Oxygen Delivery CPAP Oxygen Flow Rate 11/17/24 05:00 11/17/24 05:29 Temperature 36.4 C L Pulse Rate 73 Respiratory Rate 10 L 12 Blood Pressure 125/68 Pulse Oximetry 94 Oxygen Delivery CPAP Oxygen Flow Rate Intake/Output Intake/Output: Intake & Output 11/14/24 11/15/24 11/16/24 11/17/24 23:59 23:59 23:59 23:59 Intake Total 640 550 Output Total 175 Balance 465 550 Meds/Results Medications: Active Medications Generic Name Dose Route Start Last Admin Trade Name Freq PRN Reason Stop Dose Admin Acetaminophen 500 mg 11/16/24 15:44 Acetaminophen 500 Mg Tablet PO Q6H PRN Pain Rated 1-3 Amlodipine Besylate 5 mg 11/17/24 09:00 11/17/24 08:29 Amlodipine Besylate 5 Mg Tablet PO 5 mg DAILY DIOGENES Administration Aspirin 325 mg 11/16/24 21:00 11/17/24 08:30 Aspirin 325 Mg Enteric Tablet PO 325 mg Q12HR DIOGENES Administration Chlorhexidine Gluconate 1 applic 11/17/24 09:00 Chlorhexidine Gluconate 4% Mar 120 Ml Btl TOPICAL DAILY DIOGENES Diazepam 5 mg 11/16/24 15:44 Diazepam (*Crx) 5 Mg Tablet PO Q8H PRN Spasms Diphenhydramine HCl 25 mg 11/16/24 15:44 Diphenhydramine Hcl Inj 50 Mg/Ml Vial IV PUSH Q6H PRN Itching Famotidine 40 mg 11/17/24 09:00 11/17/24 08:29 Famotidine 20 Mg Tablet PO 40 mg DAILY DIOGENES Administration Hydromorphone HCl 1 mg 11/16/24 15:44 Hydromorphone Hcl Inj (*Crx) 1 Mg/Ml Syr IV PUSH Q2H PRN Breakthrough Pain Rated 7-10 or NPO Hydromorphone HCl 0.5 mg 11/16/24 15:44 Hydromorphone Hcl Inj (*Crx) 1 Mg/Ml Syr IV PUSH Q2H PRN Breakthrough Pain Rated 4-6 or NPO Cefazolin Sodium 2 gm in 50 mls @ 100 mls/hr 11/16/24 21:00 11/17/24 05:04 Ancef 2 Gm/D5w 50 Ml IVPB 11/17/24 13:29 100 mls/hr Q8H DIOGENES Administration Ibuprofen 800 mg in 200 mls @ 400 mls/hr 11/16/24 15:44 Caldolor 800 Mg/200 Ml IVPB Q6H PRN Breakthrough Pain Rated 1-3 or NPO Ketorolac Tromethamine 15 mg 11/16/24 18:00 11/17/24 05:04 Ketorolac 15 Mg/Ml Vial (*Bkc) IV PUSH 11/17/24 18:01 15 mg Q6HR DIOGENES Administration Miscellaneous Information 1 each 11/16/24 00:01 Chlorhexidine Says Use For 7 Days Prior To Proceddure. It Seems Like Patient Had Procedure XX 12/16/24 00:00 CLARIFY DIOGENES Multivitamins/Minerals 1 tab 11/17/24 09:00 11/17/24 08:29 Multivitamins /C Lutein (Centrum Silver) Tablet *Bkc PO 1 tab QAM DIOGENES Administration Naloxone HCl 0.1 mg 11/16/24 15:44 Naloxone Hcl 0.4 Mg/Ml Vial IV PUSH Q2M PRN Opiate Reversal Ondansetron HCl 4 mg 11/16/24 15:44 Ondansetron Inj 4 Mg/2 Ml Vial IV PUSH Q4H PRN Nausea And Vomiting Oxycodone/Acetaminophen 1 tablet 11/16/24 15:44 Oxycodone/Acetaminophen (*Crx) 5-325 Mg Tablet PO Q4H PRN Pain Rated 4-6 Oxycodone/Acetaminophen 1 tab 11/16/24 15:44 11/17/24 08:28 Oxycodone/Acetaminophen (*Crx) 10-325 Mg Tablet PO 1 tab Q6H PRN Administration Pain Rated 7-10 Polyethylene Glycol 17 gm 11/17/24 09:00 11/17/24 08:29 Polyethylene Glycol 3350 17 Gm Powd.Pack PO 17 gm QAM [facility] Administration Senna/Docusate Sodium 2 tab 11/16/24 17:00 11/17/24 08:29 Senna/Docusate Sodium Tablet PO 2 tab BID [facility] Administration Valsartan 160 mg 11/17/24 09:00 Valsartan 160 Mg Tablet PO DAILY [facility] Zinc Sulfate 220 mg 11/17/24 09:00 Zinc Sulfate 220 Mg Capsule PO 12/17/24 08:59 DAILY [facility] Radiology Results: ITS Impressions Knee X-Ray 11/16/24 14:33 IMPRESSION: 1. Recent left total knee arthroplasty. Labs Labs: Laboratory Results - last 24 hr 11/17/24 06:17 WBC 10.0 RBC 4.26 L Hgb 12.8 L Hct 38.9 L MCV 91.3 MCH 30.0 MCHC 32.9 RDW 13.1 Plt Count 222 MPV 9.6 Immature Gran % (Auto) 0.3 Neut % (Auto) 70.1 Lymph % (Auto) 14.8 L [place] % (Auto) 14.1 H Eos % (Auto) 0.4 Baso % (Auto) 0.3 Lymph # (Auto) 1.47 [place] # (Auto) 1.4 H Eos # (Auto) 0.0 Baso # (Auto) 0.0 Abs Immat Gran (auto) 0.03 Absolute Neuts (auto) 7.0 H Absolute Nucleated RBC 0.000 Nucleated RBC % 0.0 Sodium 139 Potassium 3.7 Chloride 104 Carbon Dioxide 28 Anion Gap 7 BUN 17 Creatinine 0.71 Estim Creat Clear Calc 87 Estimated GFR > 60 Glucose 97 Calcium 8.4 Quality VTE Prophylaxis VTE prophylaxis: pharmacologic ordered
[2024-11-17] MEDS: ZINC SULFATE 220 MG CAPSULE PO (12:44)
[2024-11-17 14:30] LABS: Glucose Point of Care 118 mg/dl (65-105)
--- NOTE | 2024-11-17 14:34 | WPDANESPN ---
Anes - Prog Note Post-Op Date/Time: 11/17/24 14:34 Vital Signs: Last Vital Signs Temp 36.8 C 11/17/24 13:29 Pulse 75 11/17/24 13:29 Resp 20 11/17/24 13:29 BP 121/66 11/17/24 13:29 Pulse Ox 95 11/17/24 13:29 O2 Del Method CPAP 11/17/24 05:00 O2 Flow Rate 2 11/16/24 15:40 Pain Score (VAS): 3 I/O: Intake & Output 11/16/24 11/17/24 11/17/24 23:59 07:59 15:59 Intake Total 290 600 240 Balance 290 600 240 Laboratory Tests 11/17/24 06:17 11/17/24 06:17 11/17/24 11/17/24 06:17 14:25 WBC 10.0 RBC 4.26 L Hgb 12.8 L Hct 38.9 L MCV 91.3 MCH 30.0 MCHC 32.9 RDW 13.1 Plt Count 222 MPV 9.6 Immature Gran % (Auto) 0.3 Neut % (Auto) 70.1 Lymph % (Auto) 14.8 L [place] % (Auto) 14.1 H Eos % (Auto) 0.4 Baso % (Auto) 0.3 Lymph # (Auto) 1.47 [place] # (Auto) 1.4 H Eos # (Auto) 0.0 Baso # (Auto) 0.0 Abs Immat Gran (auto) 0.03 Absolute Neuts (auto) 7.0 H Absolute Nucleated RBC 0.000 Nucleated RBC % 0.0 Sodium 139 Potassium 3.7 Chloride 104 Carbon Dioxide 28 Anion Gap 7 BUN 17 Creatinine 0.71 Estim Creat Clear Calc 87 Estimated GFR > 60 Glucose 97 POC Capillary Glucose 118 H Calcium 8.4 Patient Feedback: Patient satisfied with anesthetic care.
--- NOTE | 2024-11-17 15:58 | PC.NURSE ---
Pt working with PT on the stair step outside of his room. PT called this RN to state pt clammy, diaphoretic, and not responding well with a BP of 60s/30s, after he was returned to bed. Manual BP obtained 2 minutes later showed 70s/50s. Grace's office called. Spoke with Dr. Edwards. 1L NS given at 500 mls/hr. Discontinued IV dilaudid and oxycodone 10. Will keep over night to ensure pt BP stable, as well as trend vitals and obtain orthos q shift.
[2024-11-17] MEDS: oxyCODONE/ACETAMINOPHEN (*CRX) 5-325 MG TABLET 1 TABLET PO (20:20)
[2024-11-18] VITALS (9 sets, daily range): BP systolic 85–141; BP diastolic 54–80; PULSE 84–126; RESP 14–20; TEMP 36.7–37.4; O2SAT 93–97
--- NOTE | ~2024-11-18 | XR_ITS ---
EXAMINATION: [id number] DATE: 11/16/2024 14:33 QUALITY CONTROL MICROBIOLOGIST INDICATION: Left total knee arthroplasty TECHNIQUE: 2 views left knee FINDINGS: There is a left total knee arthroplasty in expected position. Subcutaneous gas with fluid and air in the joint and overlying skin ari are consistent with recent surgery. No evidence of pe riprosthetic fracture. IMPRESSION: 1. Recent left total knee arthroplasty. Reviewed, dictated and finalized at location A. ITY CONTROL MICROBIOLOGIST
[2024-11-18] MEDS: oxyCODONE/ACETAMINOPHEN (*CRX) 5-325 MG TABLET 1 TABLET PO ×2 (06:03→20:03)
[2024-11-18] MEDS: polyethylene glycoL 3350 17 GM POWD.PACK PO (08:15)
[2024-11-18] MEDS: MULTIVITAMINS /C LUTEIN (CENTRUM SILVER) TABLET *BKC 1 TAB PO (08:15)
[2024-11-18] MEDS: FAMOTIDINE 20 MG TABLET 40 MG PO (08:15)
[2024-11-18] MEDS: ASPIRIN 325 MG ENTERIC TABLET PO ×2 (08:15→20:03)
[2024-11-18] MEDS: amLODIPine BESYLATE 5 MG TABLET PO (08:15)
[2024-11-18] MEDS: ZINC SULFATE 220 MG CAPSULE PO (08:15)
[2024-11-18] MEDS: SENNA/DOCUSATE SODIUM TABLET 2 TAB PO ×2 (08:15→17:21)
[2024-11-18] MEDS: VALSARTAN 160 MG TABLET PO (08:16)
--- NOTE | 2024-11-18 09:11 | PM.PNORT ---
Progress Note: A&P Assessment and Plan (1) Status post total left knee replacement: Code(s): Z96.652 - Presence of left artificial knee joint Status: Acute Assessment and Plan: POD #2: Left TKA +orthostatics yesterday. Recheck today. Labs stable. Continue PT/OT. WBAT. Walker. HIGH FALL RISK. Continue pain control. Ice Knee. Protect skin. DVT prophylaxis with Aspirin. SCDs. Incentive Spirometry Use reviewed. Monitor Dressing. Change prior to discharge. Bowel Regimen. Dispo: Home with Home Health pending progress with PT/OT Time Spent With Patient Time: Reviewed history, exam, radiographs and current labs with attending MD and covering surgeon, Dr. Edwards, who agrees with current plan as indicated above. No further recommendations from Dr. Edwards at this time. Subjective Subjective Date/Time Seen: 11/18/24 09:11 Post Op day: 2 Interval history: POD #2: Left TKA Patient was unable to be discharged yesterday due to low BP, requiring bolus. Today patient continues to feel light headed and has positive orthostatic vitals. Pain well controlled. Slow progress with PT/OT this AM. Review of Systems Review of Systems: All systems reviewed & are unremarkable except as noted in HPI and below Constitutional: Constitutional: Denies fever(s) and Denies headache(s) ENT: Denies headache(s) Cardiovascular: Cardiovascular: Denies chest pain, Denies diaphoresis, Denies palpitations and Denies dyspnea Respiratory: Respiratory: Denies dyspnea Gastrointestinal: Gastrointestinal: Denies abdominal pain, Denies constipation, Denies nausea and Denies vomiting Genitourinary: Genitourinary: Denies dysuria and Reports nocturia Musculoskeletal: Musculoskeletal: Reports arthralgias (Left Knee ), Reports joint swelling (Left Knee ) and Reports limited range of motion (ROM limited due to recent surgical intervention LEFT Knee ) Neurologic: Denies headache(s) Endocrine: Endocrine: Denies palpitations Objective Data Vital Signs Vital Signs: Vital Signs - 24 hr 11/17/24 09:29 11/17/24 13:29 11/17/24 17:29 Temperature 36.8 C 36.8 C 36.8 C Pulse Rate 75 75 80 Respiratory Rate 20 20 20 Blood Pressure 121/66 121/66 120/60 Pulse Oximetry 95 95 96 Oxygen Delivery 11/17/24 20:00 11/17/24 22:29 11/18/24 00:19 Temperature 36.9 C Pulse Rate 85 84 Respiratory Rate 19 20 Blood Pressure 115/65 Pulse Oximetry 93 94 Oxygen Delivery Room Air CPAP 11/18/24 03:30 11/18/24 06:39 Temperature 36.7 C Pulse Rate 104 H Respiratory Rate 20 Blood Pressure 141/69 H Pulse Oximetry 95 Oxygen Delivery CPAP Intake/Output Intake/Output: Intake & Output 11/15/24 11/16/24 11/17/24 11/18/24 23:59 23:59 23:59 23:59 Intake Total 640 1200 Output Total 175 Balance 465 1200 Meds/Results Medications: Active Medications Generic Name Dose Route Start Last Admin Trade Name Freq PRN Reason Stop Dose Admin Acetaminophen 500 mg 11/16/24 15:44 Acetaminophen 500 Mg Tablet PO Q6H PRN Pain Rated 1-4 Amlodipine Besylate 5 mg 11/17/24 09:00 11/18/24 08:15 Amlodipine Besylate 5 Mg Tablet PO 5 mg DAILY DIOGENES Administration Aspirin 325 mg 11/16/24 21:00 11/18/24 08:15 Aspirin 325 Mg Enteric Tablet PO 325 mg Q12HR DIOGENES Administration Diazepam 5 mg 11/16/24 15:44 Diazepam (*Crx) 5 Mg Tablet PO Q8H PRN Spasms Diphenhydramine HCl 25 mg 11/16/24 15:44 Diphenhydramine Hcl Inj 50 Mg/Ml Vial IV PUSH Q6H PRN Itching Famotidine 40 mg 11/17/24 09:00 11/18/24 08:15 Famotidine 20 Mg Tablet PO 40 mg DAILY DIOGENES Administration Ibuprofen 800 mg in 200 mls @ 400 mls/hr 11/16/24 15:44 Caldolor 800 Mg/200 Ml IVPB Q6H PRN Breakthrough Pain Rated 1-3 or NPO Multivitamins/Minerals 1 tab 11/17/24 09:00 11/18/24 08:15 Multivitamins /C Lutein (Centrum Silver) Tablet *Bkc PO 1 tab QAM DIOGENES Administration Naloxone HCl 0.1 mg 11/16/24 15:44 Naloxone Hcl 0.4 Mg/Ml Vial IV PUSH Q2M PRN Opiate Reversal Ondansetron HCl 4 mg 11/16/24 15:44 Ondansetron Inj 4 Mg/2 Ml Vial IV PUSH Q4H PRN Nausea And Vomiting Oxycodone/Acetaminophen 1 tablet 11/16/24 15:44 11/18/24 06:03 Oxycodone/Acetaminophen (*Crx) 5-325 Mg Tablet PO 1 tablet Q4H PRN Administration Pain Rated 5-10 Polyethylene Glycol 17 gm 11/17/24 09:00 11/18/24 08:15 Polyethylene Glycol 3350 17 Gm Powd.Pack PO 17 gm QAM DIOGENES Administration Senna/Docusate Sodium 2 tab 11/16/24 17:00 11/18/24 08:15 Senna/Docusate Sodium Tablet PO 2 tab BID DIOGENES Administration Valsartan 160 mg 11/17/24 09:00 11/18/24 08:16 Valsartan 160 Mg Tablet PO 160 mg DAILY DIOGENES Administration Zinc Sulfate 220 mg 11/17/24 09:00 11/18/24 08:15 Zinc Sulfate 220 Mg Capsule PO 12/17/24 08:59 220 mg DAILY DIOGENES Administration Radiology Results: ITS Impressions Knee X-Ray 11/16/24 14:33 IMPRESSION: 1. Recent left total knee arthroplasty. Labs Labs: Laboratory Results - last 24 hr 11/17/24 14:25 POC Capillary Glucose 118 H
[2024-11-18 09:39] LABS: Basophils Percent Auto 0.4 % (0.2-1.2); Eosinophils Absolute Auto 0.1 K/mm3 (0-0.3); Eosinophils Percent Auto 0.7 % (0-4.4); Hematocrit 35.6 % (42.0-52.0); Hemoglobin 11.5 g/dL (14.0-18.0); Immature Granulocyte Absolute 0.02 K/mm3 (0.00-0.031); Immature Granulocyte Percent A 0.3 % (0-0.5); Lymphocytes Absolute Auto 1.28 K/mm3 (0.9-3.2); Lymphocytes Percent Auto 16.9 % (18.3-44.2); Mean Corpuscular HGB Conc 32.3 g/dl (32-36); Mean Corpuscular Hemoglobin 29.8 pg (26-34); Mean Corpuscular Volume 92.2 fl (80-100); Mean Platelet Volume 9.4 fl (7.4-10.4); Monocytes Absolute Auto 1.5 K/mm3 (0.1-0.6); Monocytes Percent Auto 19.5 % (2.6-8.5); Neutrophils Absolute Auto 4.7 K/mm3 (1.3-6.7); Neutrophils Percent Auto 62.2 % (45.5-73.1); Platelet Count Result 200 k/mm3 (150-375); Red Blood Count 3.86 M/mm3 (4.6-6.20); Red Cell Distribution Width 13.2 % (11.5-14.5); White Blood Count 7.6 K/mm3 (4.5-10.0)
[2024-11-18 09:52] LABS: Anion Gap 6 mmol/L (4-12); Blood Urea Nitrogen 24 mg/dL (9-20); Carbon Dioxide 29 mmol/L (22-30); Chloride 102 mmol/L (98-107); Estimated CRCL calculation 85 ml/min; Estimated Glomerular Filt Rate > 60; Glucose 154 mg/dL (65-110); Potassium 3.7 mmol/L (3.4-5.0); Sodium 137 mmol/L (137-145)
[2024-11-18] MEDS: SODIUM CHLORIDE 0.9% IV 500 ML IV CONT (15:25)
[2024-11-18] MEDS: ACETAMINOPHEN 500 MG TABLET PO (15:25)
[2024-11-19] VITALS (10 sets, daily range): BP systolic 87–132; BP diastolic 57–85; PULSE 92–121; RESP 14–18; TEMP 36.5–37.6; O2SAT 94–98
[2024-11-19 07:37] LABS: Hematocrit 34.2 % (42.0-52.0); Mean Corpuscular HGB Conc 32.2 g/dl (32-36); Mean Corpuscular Hemoglobin 29.6 pg (26-34); Mean Corpuscular Volume 92.2 fl (80-100); Platelet Count Result 205 k/mm3 (150-375); Red Blood Count 3.71 M/mm3 (4.6-6.20); Red Cell Distribution Width 13.2 % (11.5-14.5); White Blood Count 9.6 K/mm3 (4.5-10.0)
[2024-11-19 07:50] LABS: Anion Gap 4 mmol/L (4-12); Blood Urea Nitrogen 18 mg/dL (9-20); Calcium 8.4 mg/dL (8.4-10.2); Carbon Dioxide 30 mmol/L (22-30); Chloride 102 mmol/L (98-107); Estimated CRCL calculation 95 ml/min; Estimated Glomerular Filt Rate > 60; Glucose 120 mg/dL (65-110); Potassium 3.6 mmol/L (3.4-5.0); Sodium 136 mmol/L (137-145)
[2024-11-19] MEDS: FAMOTIDINE 20 MG TABLET 40 MG PO (09:33)
[2024-11-19] MEDS: SENNA/DOCUSATE SODIUM TABLET 2 TAB PO ×2 (09:33→17:26)
[2024-11-19] MEDS: ASPIRIN 325 MG ENTERIC TABLET PO ×2 (09:33→20:19)
[2024-11-19] MEDS: ZINC SULFATE 220 MG CAPSULE PO (09:33)
[2024-11-19] MEDS: MULTIVITAMINS /C LUTEIN (CENTRUM SILVER) TABLET *BKC 1 TAB PO (09:33)
[2024-11-19] MEDS: oxyCODONE/ACETAMINOPHEN (*CRX) 5-325 MG TABLET 1 TABLET PO ×2 (09:34→20:19)
[2024-11-19] MEDS: polyethylene glycoL 3350 17 GM POWD.PACK PO (09:35)
--- NOTE | 2024-11-19 14:37 | PM.PNORT ---
Progress Note: A&P Assessment and Plan (1) Status post total left knee replacement: Code(s): Z96.652 - Presence of left artificial knee joint Status: Acute Assessment and Plan: POD 3 IMPROVING BUT CONTINUES TO HAVE ORTHOSTATIC HYPOTENSION. RECOMMEND INTERNAL MEDICINE CONSULT. HE HAS A STABLE HGB. HE WILL HAVE PT HE CAN TOLERATE. (2) Orthostatic hypotension: Code(s): I95.1 - Orthostatic hypotension Status: Acute Subjective Subjective Date/Time Seen: 11/19/24 14:37 Interval history: POD 3 IMPROVING. HE IS STILL HAVING BOUTS OF ORTHOSTATIC PROBLEMS DESPITE HOLDING BP MEDS AND PAIN MEDS. HE HAS SYMPTOMS WELL AND FEELS HE WILL FALL. HE DENIES ANY CHEST PAIN OR SOB. DENIES ANY CALF PAIN OR SIGNIFICANT THIGH PAIN Exam Extrem: Other: VSS AFEBRILE DRESSING DRY [place] INTACT NEG HOMANS SIGN CALF AND THIGH ARE SOFT WITH MINIMAL TENDERNESS. Objective Data Vital Signs Vital Signs: Vital Signs - 24 hr 11/18/24 20:00 11/18/24 20:00 11/18/24 20:48 Temperature 37.1 C Pulse Rate 103 H 110 H Respiratory Rate 14 16 Blood Pressure 129/61 119/63 Pulse Oximetry 93 94 Oxygen Delivery Room Air 11/18/24 20:52 11/19/24 00:52 11/19/24 04:00 Temperature 36.5 C 36.8 C Pulse Rate 117 H 94 102 H Respiratory Rate 16 14 16 Blood Pressure 117/60 131/63 127/71 Pulse Oximetry 97 96 96 Oxygen Delivery 11/19/24 08:00 11/19/24 09:00 11/19/24 09:00 Temperature 37.6 C H 37.3 C Pulse Rate 99 108 H 109 H Respiratory Rate 15 18 Blood Pressure 126/75 130/85 115/75 Pulse Oximetry 94 98 Oxygen Delivery 11/19/24 09:00 11/19/24 09:03 11/19/24 11:23 Temperature 37.4 C Pulse Rate 118 H 121 H 99 Respiratory Rate 15 Blood Pressure 112/69 87/57 L 120/78 Pulse Oximetry 95 Oxygen Delivery Intake/Output Intake/Output: Intake & Output 11/16/24 11/17/24 11/18/24 11/19/24 23:59 23:59 23:59 23:59 Intake Total 640 1200 1200 858 Output Total 175 Balance 465 1200 1200 858 Meds/Results Medications: Active Medications Generic Name Dose Route Start Last Admin Trade Name Freq PRN Reason Stop Dose Admin Acetaminophen 500 mg 11/16/24 15:44 11/18/24 15:25 Acetaminophen 500 Mg Tablet PO 500 mg Q6H PRN Administration Pain Rated 1-4 Amlodipine Besylate 5 mg 11/17/24 09:00 11/19/24 09:35 Amlodipine Besylate 5 Mg Tablet PO Not Given DAILY DIOGENES Aspirin 325 mg 11/16/24 21:00 11/19/24 09:33 Aspirin 325 Mg Enteric Tablet PO 325 mg Q12HR DIOGENES Administration Diazepam 5 mg 11/16/24 15:44 Diazepam (*Crx) 5 Mg Tablet PO Q8H PRN Spasms Diphenhydramine HCl 25 mg 11/16/24 15:44 Diphenhydramine Hcl Inj 50 Mg/Ml Vial IV PUSH Q6H PRN Itching Famotidine 40 mg 11/17/24 09:00 11/19/24 09:33 Famotidine 20 Mg Tablet PO 40 mg DAILY DIOGENES Administration Ibuprofen 800 mg in 200 mls @ 400 mls/hr 11/16/24 15:44 Caldolor 800 Mg/200 Ml IVPB Q6H PRN Breakthrough Pain Rated 1-3 or NPO Multivitamins/Minerals 1 tab 11/17/24 09:00 11/19/24 09:33 Multivitamins /C Lutein (Centrum Silver) Tablet *Bkc PO 1 tab QAM DIOGENES Administration Naloxone HCl 0.1 mg 11/16/24 15:44 Naloxone Hcl 0.4 Mg/Ml Vial IV PUSH Q2M PRN Opiate Reversal Ondansetron HCl 4 mg 11/16/24 15:44 Ondansetron Inj 4 Mg/2 Ml Vial IV PUSH Q4H PRN Nausea And Vomiting Oxycodone/Acetaminophen 1 tablet 11/16/24 15:44 11/19/24 09:34 Oxycodone/Acetaminophen (*Crx) 5-325 Mg Tablet PO 1 tablet Q4H PRN Administration Pain Rated 5-10 Polyethylene Glycol 17 gm 11/17/24 09:00 11/19/24 09:35 Polyethylene Glycol 3350 17 Gm Powd.Pack PO 17 gm QAM DIOGENES Administration Senna/Docusate Sodium 2 tab 11/16/24 17:00 11/19/24 09:33 Senna/Docusate Sodium Tablet PO 2 tab BID DIOGENES Administration Valsartan 160 mg 11/17/24 09:00 11/19/24 09:34 Valsartan 160 Mg Tablet PO Not Given DAILY DIOGENES Zinc Sulfate 220 mg 11/17/24 09:00 11/19/24 09:33 Zinc Sulfate 220 Mg Capsule PO 12/17/24 08:59 220 mg DAILY DIOGENES Administration Radiology Results: ITS Impressions Knee X-Ray 11/16/24 14:33 IMPRESSION: 1. Recent left total knee arthroplasty. Labs Labs: Laboratory Results - last 24 hr 11/19/24 06:47 WBC 9.6 RBC 3.71 L Hgb 11.0 L Hct 34.2 L MCV 92.2 MCH 29.6 MCHC 32.2 RDW 13.2 Plt Count 205 MPV 10.0 Sodium 136 L Potassium 3.6 Chloride 102 Carbon Dioxide 30 Anion Gap 4 BUN 18 Creatinine 0.65 L Estim Creat Clear Calc 95 Estimated GFR > 60 Glucose 120 H Calcium 8.4
--- NOTE | 2024-11-19 18:35 | P.CONIM_ITS ---
Assessment and Plan Assessment and plan (1) Degenerative joint disease of left knee: Code(s): M17.12 - Unilateral primary osteoarthritis, left knee Status: Acute Assessment and Plan: Postoperative day 3 status post left total knee arthroplasty. Wound care, pain control, and DVT prophylaxis deferred to primary service. (2) Orthostatic hypotension: Code(s): I95.1 - Orthostatic hypotension Status: Acute Assessment and Plan: Etiology not entirely clear but could be medication related. He is eating and drinking normally and had minimal drop in hemoglobin. Hold amlodipine and valsartan for now and discontinue p.r.n. diphenhydramine and diazepam. Initiate fall precautions and monitor orthostatic vital signs Q shift. Start normal saline and add knee-high Elkin hose. (3) Gastroesophageal reflux disease: Code(s): K21.9 - Gastro-esophageal reflux disease without esophagitis Status: Acute Assessment and Plan: Continue famotidine. Plan Thank you for allowing us to participate in this patient's care. Please do not hesitate to contact us with any questions. HPI Date of Consult Consult date: 11/19/24 Requesting Physician: Ramón Edwards MD Primary Care Provider: Chalo Gómez DO Consult Narrative Reason for consult: orthostatic hypotension Narrative: This is a 69-year-old male with osteoarthritis and hypotension who is postoperative day 3 from a left total knee replacement whom the hospitalist service has been consulted for ongoing issues with orthostatic hypotension. He presented for elective knee replacement due to ongoing pain despite conservative treatment. His surgery was performed under general anesthesia with no immediate complications documented an estimated blood loss of 150 mL. He began having issues with orthostatic hypotension reports that he was feeling lightheaded and dizzy within a couple of minutes of standing yesterday. Nurse reports that he had a bolus of IV fluid this morning however repeat orthostatic vital signs continued to show a drop in blood pressure and elevation in heart rate (130/85 --> 87/57 and 108 --> 121). Historically he has not had problems with orthostatic hypotension. He has been receiving his blood pressure medications the last couple of days which include amlodipine 5 mg and valsartan 160 mg daily. His pain is pretty well controlled and is well controlled on occasional oxycodone 5 mg. He has orders for diphenhydramine and diazepam as needed but he has not required either of these medications. At the time my evaluation he is resting comfortably and has no complaints aside from the fact that he has not had a bowel movement yet. He denies current feelings of lightheadedness, dizziness, chest pain, pleuritic pain, palpitations, shortness of breath, abdominal pain, nausea, vomiting, diarrhea, dysuria, and significant pain. Review of Systems 2 Review of Systems: 12 systems were reviewed and are negativ e except for as per HPI. [facility] Past Medical History Medical History (Updated 11/19/24 @ 22:54 by Nidhi Fuller PA-C) Prediabetes Kidney stone Gastroesophageal reflux disease Obstructive sleep apnea on CPAP Essential (primary) hypertension Arthritis Surgical History Surgical History (Updated 11/19/24 @ 22:53 by Nidhi Fuller PA-C) History of tonsillectomy History of arthroplasty of left knee (11/16/24) History of hemorrhoidectomy History of right knee surgery History of hand surgery Family History Family History Father Hypertension Family history of chronic obstructive pulmonary disease Mother Hypertension Sibling Hypertension Emphysema of lung Grandparent Family history of heart disease in male family member before age 55 Other Family history of arthritis Family history of cardiovascular disease Social History Social History (Updated 11/19/24 @ 22:53 by Nidhi Fuller PA-C) Social History: Surrogate medical decision maker: Code status: Full code. Smoking status: Never smoker Second hand tobacco smoke exposure: Yes Additional smoking assessment comments: Denies any nicotine in system Alcohol intake: never Drinks per week: 1 Alcohol use details: occasionally Substance use: never Substance use type: does not use Do You Feel Safe in your Home?: Yes Lack of Transportation: No Lack of Food: Never True Current Housing: I Have Housing Concerned About Future Housing: No Difficulty Paying Gas/Electric Bills: No Difficulty Paying for Meds: No Currently Unemployed: No Education: Decline to Answer Difficulty w/ Childcare or Family Care: No Living arrangements: with family Additional living arrangements comments: Occupation/Education: retired Additional occupation/education comments: [employer] Spiritual care concerns: No Meds Home Medications and Allergies Home Medications ?Medication ?Instructions ?Recorded ?Confirmed ?Type turmeric root extract 1,053 mg 1,076 mg PO DAILY 09/23/21 01/15/25 History tablet nystatin-triamcinolone 100,000 1 applic topical BID #60 grams 11/07/22 11/03/24 Rx unit/g-0.1 % topical cream [id number]-piy-vrvuz 150 mcg-vit K1 1 tablet PO DAILY 05/14/23 11/16/24 History 30 mcg-lycop 300 mcg-lutein tablet (Centrum Minis Men 50 Plus) zinc acetate 50 mg (zinc) capsule 50 mg PO DAILY 05/14/23 11/16/24 History (Galzin) amlodipine 5 mg tablet 5 mg PO DAILY #90 tabs 04/26/24 11/16/24 Rx famotidine 40 mg tablet (Pepcid) 40 mg PO DAILY #90 tabs 04/26/24 11/16/24 Rx valsartan 160 mg tablet 160 mg PO DAILY #90 tabs 04/26/24 11/16/24 Rx acetaminophen 500 mg tablet 500 mg PO Q6H PRN pain 11/03/24 11/16/24 History (Tylenol Extra Strength) chlorhexidine gluconate 4 % 1 applic topical DAILY #237 mL 11/03/24 11/16/24 Rx topical liquid (Hibiclens) aspirin 325 mg tablet,delayed 325 mg PO Q12HR 28 days #56 tabs 11/17/24 Rx release oxycodone-acetaminophen 5 mg-325 1 - 2 tablet PO Q4H PRN pain #40 11/17/24 Rx mg tablet tabs Allergies Allergy/AdvReac Type Severity Reaction Status Date / Time Iodinated Contrast Media Allergy Intermediate Nausea Verified 11/16/24 09:47 iodine Allergy Intermediate Nausea Verified 11/16/24 09:47 Iodine and Iodide Containing Allergy Intermediate Nausea Verified 11/16/24 09:47 Produc ioversol Allergy Unknown Nausea Verified 11/16/24 09:47 Contrast Media AdvReac Intermediate NAUSEA Uncoded 11/10/24 13:21 Vital Signs Vital Signs - 24 hr 11/18/24 20:00 11/18/24 20:00 11/18/24 20:48 Temperature 98.7 F Pulse Rate 103 H 110 H Respiratory Rate 14 16 Blood Pressure 129/61 119/63 Pulse Oximetry 93 94 Oxygen Delivery Room Air 11/18/24 20:52 11/19/24 00:52 11/19/24 04:00 Temperature 97.7 F 98.2 F Pulse Rate 117 H 94 102 H Respiratory Rate 16 14 16 Blood Pressure 117/60 131/63 127/71 Pulse Oximetry 97 96 96 Oxygen Delivery 11/19/24 08:00 11/19/24 09:00 11/19/24 09:00 Temperature 99.7 F H 99.1 F Pulse Rate 99 108 H 109 H Respiratory Rate 15 18 Blood Pressure 126/75 130/85 115/75 Pulse Oximetry 94 98 Oxygen Delivery 11/19/24 09:00 11/19/24 09:03 11/19/24 11:23 Temperature 99.4 F Pulse Rate 118 H 121 H 99 Respiratory Rate 15 Blood Pressure 112/69 87/57 L 120/78 Pulse Oximetry 95 Oxygen Delivery 11/19/24 15:51 Temperature 98.9 F Pulse Rate 103 H Respiratory Rate 15 Blood Pressure 132/69 Pulse Oximetry 98 Oxygen Delivery Exam 2 Narrative: General: Well-developed, nontoxic-appearing male in the semi-Garber position in bed in no distress. Weight: 91.2 kg. BMI: 28.8. HEENT: PERRL, EOMI. Sclera anicteric. Oral mucosa moist. Neck: Supple. Respiratory: Lungs are clear to auscultation bilaterally. Cardiovascular: Regular rate and rhythm with S1-S2. Gastrointestinal: Abdomen is soft, nontender, and nondistended with positive bowel sounds. No organomegaly. Skin: Warm and dry. No rash or lesions on limited exam. Extremities: No cyanosis, clubbing, or edema. Radial and pedal pulses intact. Musculoskeletal: Left knee dressing is clean, dry, and intact. Neurological: Alert. Cranial nerves 2-12 are grossly intact. No gross focal deficits to casual conversation. Psychiatric: Pleasant and cooperative with normal mood and affect. Judgment and insight intact. Results Labs 11/19/24 06:47 11/19/24 06:47 Labs: Short CBC 11/19/24 Range/Units 06:47 WBC 9.6 (4.5-10.0) K/mm3 Hgb 11.0 L (14.0-18.0) g/dL Hct 34.2 L (42.0-52.0) % Plt Count 205 (150-375) k/mm3 BMP 11/19/24 06:47 Sodium 136 L Potassium 3.6 Chloride 102 Carbon Dioxide 30 BUN 18 Creatinine 0.65 L Glucose 120 H Calcium 8.4 Hospitalist MIPS Advance Care Plan I have confirmed that the patient's Advanced Care Plan is present, code status is documented, or surrogate decision maker is listed in patient medical record.: Yes Medication Reconciliation The patient is not eligible for med reconciliation; the patient is in a emergent medical situation where delaying treatment would jeopardize the patients health.: Yes
[2024-11-19] MEDS: SODIUM CHLORIDE 0.9% IV 1,000 ML 100 ML IV CONT (23:40)
[2024-11-19] MEDS: SODIUM CHLORIDE 0.9% IV 1,000 ML 999 ML IV CONT (23:40)
[2024-11-20] VITALS: BP 133/69; PULSE 86; RESP 16; TEMP 36.6; O2SAT 98
[2024-11-20 04:00] VITALS: BP 132/70; PULSE 97; RESP 16; TEMP 36.7; O2SAT 94
[2024-11-20] MEDS: BISACODYL 10 MG SUPPOSITORY RECTAL (06:11)
[2024-11-20 06:52] LABS: Alanine Aminotransferase 21 U/L (6-50); Albumin Level 2.9 g/dL (3.5-5.1); Alkaline Phosphatase 48 U/L (38-126); Anion Gap 3 mmol/L (4-12); Aspartate Amino Transferase 24 U/L (17-59); Bilirubin,Total 1.1 mg/dL (0.2-1.3); Blood Urea Nitrogen 20 mg/dL (9-20); Calcium 7.7 mg/dL (8.4-10.2); Carbon Dioxide 28 mmol/L (22-30); Chloride 104 mmol/L (98-107); Estimated CRCL calculation 87 ml/min; Estimated Glomerular Filt Rate > 60; Glucose 119 mg/dL (65-110); Magnesium 2.1 mg/dL (1.6-2.3); Potassium 3.8 mmol/L (3.4-5.0); Sodium 135 mmol/L (137-145)
[2024-11-20 06:59] LABS: Hematocrit 31.4 % (42.0-52.0); Hemoglobin 10.4 g/dL (14.0-18.0); Mean Corpuscular HGB Conc 33.1 g/dl (32-36); Mean Corpuscular Hemoglobin 30.9 pg (26-34); Mean Corpuscular Volume 93.2 fl (80-100); Mean Platelet Volume 10.1 fl (7.4-10.4); Platelet Count Result 220 k/mm3 (150-375); Red Blood Count 3.37 M/mm3 (4.6-6.20); Red Cell Distribution Width 12.9 % (11.5-14.5); White Blood Count 9.8 K/mm3 (4.5-10.0)
[2024-11-20 08:00] VITALS: BP 122/70; PULSE 90; RESP 16; TEMP 36.7; O2SAT 97
[2024-11-20] MEDS: polyethylene glycoL 3350 17 GM POWD.PACK PO (09:37)
[2024-11-20] MEDS: ZINC SULFATE 220 MG CAPSULE PO (09:37)
[2024-11-20] MEDS: ACETAMINOPHEN 325 MG TABLET 650 MG PO (09:37)
[2024-11-20] MEDS: MULTIVITAMINS /C LUTEIN (CENTRUM SILVER) TABLET *BKC 1 TAB PO (09:37)
[2024-11-20] MEDS: ASPIRIN 325 MG ENTERIC TABLET PO (09:37)
[2024-11-20] MEDS: SENNA/DOCUSATE SODIUM TABLET 2 TAB PO (09:38)
[2024-11-20] MEDS: FAMOTIDINE 20 MG TABLET 40 MG PO (09:38)
[2024-11-20 09:40] VITALS: BP 121/68; BP 123/66; PULSE 107; PULSE 99; RESP 16; TEMP 36.7; O2SAT 100; O2SAT 97
--- NOTE | 2024-11-20 14:16 | P.PNIM_ITS ---
Progress Note: A&P Assessment and Plan (1) Degenerative joint disease of left knee: Code(s): M17.12 - Unilateral primary osteoarthritis, left knee Status: Acute Assessment and Plan: Postoperative day 3 status post left total knee arthroplasty. Wound care, pain control, and DVT prophylaxis deferred to primary service. (2) Orthostatic hypotension: Code(s): I95.1 - Orthostatic hypotension Status: Acute Assessment and Plan: Etiology not entirely clear but could be medication related. He is eating and drinking normally and had minimal drop in hemoglobin. Hold amlodipine and valsartan for now and discontinue p.r.n. diphenhydramine and diazepam. Initiate fall precautions and monitor orthostatic vital signs Q shift. Start normal saline and add knee-high Elkin hose. (3) Gastroesophageal reflux disease: Code(s): K21.9 - Gastro-esophageal reflux disease without esophagitis Status: Acute Assessment and Plan: Continue famotidine. Plan Thank you for allowing us to participate in this patient's care. Please do not hesitate to contact us with any questions. Patient post op day 4 s/p left total knee arthroplasty had episodes of orthostatic hypotension there was no concern of anemia, and most likelly 2/2 pain medication and his BP meds amlodipine and valsartan, today patient is BP is close to normal he was able to work with PT without any difficulty, patient is seen by his surgeon and clinically stable, patient will be discharged today by his surgeon, and to follow up with his primary care to resume his BP medication. I have spoken with nursing the will instruct him. Subjective Date/time seen: 11/20/24 14:16 Interval history: Patient post op day 4 s/p left total knee arthroplasty had episodes of orthosta tic hypotension there was no concern of anemia, and most likelly 2/2 pain medication and his BP meds amlodipine and valsartan, today patient is BP is close to normal he was able to work with PT without any difficulty, patient is seen by his surgeon and clinically stable, patient will be discharged today by his surgeon, and to follow up with his primary care to resume his BP medication. I have spoken with nursing the will instruct him. Review of Systems Review of Systems: 12 systems were reviewed and are negativ e except for as per HPI. Exam Narrative: Patient is comfortable, NAD HEENT: eyes are clear and none icteric LUNGS:CTA HEART: RR S1S2 ABD: BS+, Soft and nontender Lower extremities: no edema SKIN: nonjaundiced Neuro: grossly intact. Objective Data Vital Signs Vital Signs: Vital Signs - 24 hr 11/19/24 15:51 11/19/24 20:00 11/19/24 20:00 Temperature 37.2 C 36.5 C Pulse Rate 103 H 92 Respiratory Rate 15 16 Blood Pressure 132/69 127/67 Pulse Oximetry 98 97 Oxygen Delivery Room Air 11/19/24 22:18 11/19/24 22:21 11/20/24 00:00 Temperature 36.6 C Pulse Rate 95 111 H 86 Respiratory Rate 16 16 16 Blood Pressure 126/72 120/57 L 133/69 Pulse Oximetry 97 95 98 Oxygen Delivery 11/20/24 04:00 11/20/24 08:00 11/20/24 08:00 Temperature 36.7 C 36.7 C 36.7 C Pulse Rate 97 90 90 Respiratory Rate 16 16 16 Blood Pressure 132/70 122/70 122/70 Pulse Oximetry 94 97 97 Oxygen Delivery 11/20/24 09:40 11/20/24 09:40 11/20/24 09:50 Temperature 36.7 C 36.7 C Pulse Rate 99 107 H Respiratory Rate 16 16 Blood Pressure 121/68 123/66 Pulse Oximetry 100 97 Oxygen Delivery Room Air Intake/Output Intake/Output: Intake & Output 11/17/24 11/18/24 11/19/24 11/20/24 23:59 23:59 23:59 23:59 Intake Total 1200 1200 1598 1685 Output Total 600 Balance 1200 1200 1598 1085 Meds/Results Medications: Active Medications Generic Name Dose Route Start Last Admin Trade Name Freq PRN Reason Stop Dose Admin Acetaminophen 650 mg 11/19/24 18:21 11/20/24 09:37 Acetaminophen 325 Mg Tablet PO 650 mg Q6H PRN Administration Mild Pain (1-3) or Fever Amlodipine Besylate 5 mg 11/17/24 09:00 11/19/24 09:35 Amlodipine Besylate 5 Mg Tablet PO Not Given DAILY DIOGENES Aspirin 325 mg 11/16/24 21:00 11/20/24 09:37 Aspirin 325 Mg Enteric Tablet PO 325 mg Q12HR DIOGENES Administration Famotidine 40 mg 11/17/24 09:00 11/20/24 09:38 Famotidine 20 Mg Tablet PO 40 mg DAILY DIOGENES Administration Ibuprofen 800 mg in 200 mls @ 400 mls/hr 11/16/24 15:44 Caldolor 800 Mg/200 Ml IVPB Q6H PRN Breakthrough Pain Rated 1-3 or NPO Multivitamins/Minerals 1 tab 11/17/24 09:00 11/20/24 09:37 Multivitamins /C Lutein (Centrum Silver) Tablet *Bkc PO 1 tab QAM DIOGENES Administration Naloxone HCl 0.1 mg 11/16/24 15:44 Naloxone Hcl 0.4 Mg/Ml Vial IV PUSH Q2M PRN Opiate Reversal Ondansetron HCl 4 mg 11/16/24 15:44 Ondansetron Inj 4 Mg/2 Ml Vial IV PUSH Q4H PRN Nausea And Vomiting Oxycodone/Acetaminophen 1 tablet 11/16/24 15:44 11/19/24 20:19 Oxycodone/Acetaminophen (*Crx) 5-325 Mg Tablet PO 1 tablet Q4H PRN Administration Pain Rated 5-10 Polyethylene Glycol 17 gm 11/17/24 09:00 11/20/24 09:37 Polyethylene Glycol 3350 17 Gm Powd.Pack PO 17 gm QAM DIOGENES Administration Senna/Docusate Sodium 2 tab 11/16/24 17:00 11/20/24 09:38 Senna/Docusate Sodium Tablet PO 2 tab BID DIOGENES Administration Valsartan 160 mg 11/17/24 09:00 11/19/24 09:34 Valsartan 160 Mg Tablet PO Not Given DAILY [facility] Zinc Sulfate 220 mg 11/17/24 09:00 11/20/24 09:37 Zinc Sulfate 220 Mg Capsule PO 12/17/24 08:59 220 mg DAILY DIOGENES Administration Radiology Results: ITS Impressions Knee X-Ray 11/16/24 14:33 IMPRESSION: 1. Recent left total knee arthroplasty. Labs Labs: Laboratory Results - last 24 hr 11/20/24 06:24 WBC 9.8 RBC 3.37 L Hgb 10.4 L Hct 31.4 L MCV 93.2 MCH 30.9 MCHC 33.1 RDW 12.9 Plt Count 220 MPV 10.1 Sodium 135 L Potassium 3.8 Chloride 104 Carbon Dioxide 28 Anion Gap 3 L BUN 20 Creatinine 0.71 Estim Creat Clear Calc 87 Estimated GFR > 60 Glucose 119 H Calcium 7.7 L Magnesium 2.1 Total Bilirubin 1.1 AST 24 ALT 21 Alkaline Phosphatase 48 Total Protein 6.0 L Albumin 2.9 L Quality VTE Prophylaxis VTE prophylaxis: pharmacologic ordered
--- OUTSIDE RECORDS SUMMARY | 2024-11-23 01:52 | XMS_ITS | Data Portability ---
Author Organization [facility], Main Office Address [address] [place] [address] Assessment No assessment recorded. Plan of Treatment Reminders Order Date Submit Date Provider Last Modified By Organization Details Last Modified Time Details Appointments None record ed. Lab None record ed. Referral None record ed. Procedures None record ed. Surgeries None record ed. Imaging XR, hand, 3 or more view 023 02/04/20 23 [email or web address] [facility], [address], [place], [address], 3 10:23:56 Medication Orders None record ed. Patient TargetsNo targets recorded. Patient InstructionsNo instructions recorded. Reason for Referral None Reported. Results Created Date Observation Date Name Description Value Unit Range Abnormal Flag Note LastModifiedBy Organization Detail LastModifiedTime 02/04/20 23 XR, hand, 3 or more view No observ ation record ed. [email or web address] [facility] [address], [place], [address], 02/03/2023 10:05:26 Result Notes None recorded. Problems Name Problem SNOMED Code Status Onset Date Resolution Date Notes Provider Name and Address Organization Details Recorded Time Pain of left hand 0611279517033 03 Active 2022 NELLI Hutton, [facility] 09:23:26 Arthritis of first carpometaca rpal joint of left hand 3443704527919 103 Active 2022 Augustin Callahan MD [address] [place] [address], [place] [address], [place], [address] [facility] 3 10:05:33 Problem Notes None recorded. Procedures Surgical History Date Name Laterality Status Provider Name and Address Organization Details Recorded Time Hand completed Aaron Salazar NELLI [place] [facility] [email or web address] [facility] 02/03/2023 09:22:59 Knee completed NELLI Hutton [place] [facility] [employer] [facility] 02/03/2023 09:23:05 Imaging Results Imaging Date Name Status LastModified by Organiz ation Details LastModified Time 02/03/2023 XR, hand, 3 or more view completed [email or web address] [facility] [address], [place], [address], 02/03/2023 10:05:26 Procedure Notes None recorded. Medical Equipment None Reported. Allergies No known drug allergies Medications Name Sig Start Date Stop Date Status Note LastModified by Organization Details LastModified Time amoxicillin 500 mg capsule 01/26 completed Not Available Not Available Not Available naproxen 375 mg tablet TAKE 1 TABLET BY MOUTH TWICE DAILY WITH FOOD NEEDED FOR PAIN active Not Available Not Available No t Available fluticasone propionate 0.05 % topical cream APPLY TOPICALLY TO THE AFFECTED AREA TWICE DAILY 02/03 completed Not Available Not Available Not Available famotidine 40 mg tablet active Not Available Not Available Not Available Anucort-HC 25 mg suppository 01/26 completed Not Available Not Available Not Available Nexium 40 mg capsule,del ayed release 01/26 completed Not Available Not Available Not Available amlodipine 5 mg tablet active Not Available Not Available Not Available pantoprazol e 40 mg tablet,shalonda yed release 01/26 completed Not Available Not Available Not Available nystatin-tr iamcinolone 100,000 unit/g-0.1 % topical cream APPLY CREAM TOPICALLY TWICE DAILY 01/26 completed Not Available Not Available Not Available diclofenac sodium 75 mg tablet,shalonda yed release 01/26 completed Not Available Not Available Not Available nabumetone 500 mg tablet 01/26 completed Not Available Not Available Not Available valsartan 160 mg tablet active Not Available Not Available Not Available amlodipine 5 mg-valsarta n 160 mg tablet 01/26 completed Not Available Not Available Not Available Suprep Bowel Prep Kit 17.5 gram-3.13 gram-1.6 gram oral solution 01/26 completed Not Available Not Available Not Available Jublia 10 % topical solution with applicator 01/26 completed Not Available Not Available Not Available Vitals Date Recorded Body height Body mass index (BMI) Body weight Provider Name and Address Organization Details Last Updated DateTime 02/03/2023 177.8 cm 30.1 kg/m2 88076.4 g NELLI Hutton [facility] [employer] 02/03/2023 09:22:00 Social History Question Answer Notes LastModified by Organizat ion Details LastModified Time Tobacco Smoking Status Never Smoker NELLI Hutton [facility] [employer] 02/03/2023 09:22:49 What Is Your Level Of Alcohol Consumption? Occasional [email or web address] Information not available 02/03/2023 Sex: Unknown Functional Status None recorded. Mental Status None recorded. Family History Relationship Description Onset Age of this Age Resolved Age Notes LastModified by Organization Details LastModified Time Mother Hypertensive disorder [email or web address] Not available 2022 09:22:35 Medical History Condition Response ARTHRITIS Y HYPERTENSION Y Past Encounters Encounter ID Performer Location Encounter Start Date Encounter Closed Date Diagnosis/Indication Diagnosis SNOMED-CT Code Diagnosis ICD10 Code Diagnosis Note [id number] Augustin Callahan MD [facility] [address] [place] [address] 02/03/2023 09:11:32 02/03/2023 10:23:56 Pain of left hand 8067616124 06814 M79.642 Arthritis of first carpometacarpal joint of left hand 3916632298 797783 M13.842 patient ended up with a bit of a hybrid of a CMC arthroplas ty he is fused which is a perfectly good joint but does leave them a little stiff and he has the ulnar half of the trapezium resected with the tendon interposed and thus he is not having any grinding is only having intermitte nt pains and I would not recommend revising at this point as it is working for him for the most part. If he starts having increasing pain and x-rays show that he is getting down to bone-on-anabell ne between what is left of the trapezium and the scaphoid then the rest of the trapezium could be removed and a tight rope suspension could be utilized to hold his position as he has already had the flexor tendon utilized his previous procedure. Health Concerns Section Related Observation LastModified by Organization Melva prince LastModified Time None Recorded Concern Status LastModified by Organization Details LastModified Time None Recorded Advance Directives Directive None Recorded Payers Encounter Date Sequence Insurance Name Policy Number Policy Mack Covered Member ID Mack Member ID Guarantor Name 02/03/2023 1 [place] Bart Beltran [id number] Bart Beltran 02/03/2023 2 [facility] [id number] Bart Soodluis eduardo [id number] Bart Wise Barrieluis eduardo Notes Date Note Type Note Provider Name and Address Organization Details Recorded Time 02/03/2023 text/html patient in 2017 underwent a CMC interposition arthroplasty operative notes as a split the trapezium into 4 portions and removed some it looks like the radial half though is still there or grew back but it is fused into the base of the metacarpal and thus he has ended up with sort of a hybrid of a partial fusion at the CMC and an interposition between the base of the metacarpal and the trapezoid in between the trapezium and trapezoid there is still a gap he still has good cartilage between what is left of the base of the trapezium and the scaphoid and thus he does not have crepitus does not have any severe pain just occasional pain with certain activities Augustin Callahan MD [address] [place] [address], [place] [address], [place], [address], [facility] [employer] 02/03/2023 10:06:37
--- OUTSIDE RECORDS SUMMARY | 2024-11-23 01:52 | XMS_ITS | Continuity of Care Document ---
Author Organization [facility] Address [address] [place] [address] [address] [place] [address] Phone Care Team Providers Care Sand Blaster Name Role Phone Seng PTTushar Unavailable Unavailable Procedures Procedure Date Therapeutic Activities Neuromuscular Re-Ed Therapeutic Exercise Therapeutic Activities Neuromuscular Re-Ed Therapeutic Exercise Doc neg elder mal no plan PT Re-evaluation Therapeutic Activities Neuromuscular Re-Ed Therapeutic Exercise Therapeutic Activities Neuromuscular Re-Ed Therapeutic Exercise Therapeutic Activities Neuromuscular Re-Ed Therapeutic Exercise Therapeutic Activities Neuromuscular Re-Ed Therapeutic Exercise Manual Therapy Therapeutic Activities Neuromuscular Re-Ed Therapeutic Exercise Manual Therapy Therapeutic Activities Neuromuscular Re-Ed Therapeutic Exercise Manual Therapy Therapeutic Activities Neuromuscular Re-Ed Therapeutic Exercise Manual Therapy Therapeutic Activities Neuromuscular Re-Ed Therapeutic Exercise Manual Therapy Therapeutic Activities Neuromuscular Re-Ed Therapeutic Exercise Manual Therapy Doc neg elder mal no plan PT Evaluation Moderate Complexity Therapeutic Activities Neuromuscular Re-Ed Therapeutic Exercise Advance Directives Directive Yes / No Effective Date File Name No Information Encounters Encounter Description Practice Location Reason(s) For Visit Diagnoses Date Provider Providers Copied on Encounter [facility], [address], [id number], tel:[phone] [place] No Information Seng Pleitez . Referring Provider: [place], [address]. tel:[phone] [facility] [address], [id number], tel:[phone] [place] No Information Seng Pleitez . Referring Provider: [place], [address]. tel:[phone] [facility] [address], [id number], tel:[phone] [place] No Information Seng Pleitez . Referring Provider: [place], [address]. tel:[phone] [facility] [address], [id number], [place] tel:[phone] [place] No Information Seng Pleitez . Referring Provider: [place], [address]. tel:[phone] [facility] [address], [id number], tel:[phone] [place] No Information Seng Tushar. . Referring Provider: Osw[place], [address]. tel:[phone] [facility] [address] [facility] [address], [place], [place], [id number], [place] tel:[phone] [place] No Information Seng Tushar. . Referring Provider: Osw[place], [address]. tel:[phone] [facility] [address] [facility], [place], [place], [id number], [place] tel:[phone] [place] No Information Seng Tushar. . Referring Provider: Osw[place], [address]. tel:[phone] [facility] [address] [address], [place], [id number], [place] tel:[phone] [place] No Information Seng Tushar. . Referring Provider: Oswal[place], [address]. tel:[phone] [facility], [address] [facility], [place], [place], [id number], [place] tel:[phone] [place] No Information Seng Tushar. . Referring Provider: Osw[place], [address]. tel:[phone] [facility] [address] [facility], [place], [id number], [place] tel:[phone] [place] No Information Seng Tushar. . Referring Provider: Osw[place], [address]. tel:[phone] [facility] [address] [facility], [place], [id number], [place] tel:[phone] [place] No Information Seng Pleitez . Referring Provider: [place], [address]. tel:[phone] [facility], [address] [facility] [address], [place], [place], [id number], tel:[phone] [place] No Information Seng Pleitez . Referring Provider: [place], [address]. tel:[phone] Family History Family Member Type Diagnosis Age At Onset No Information Payers Payer name Insurance type Covered republican ID Helen hoover(s) [employer] [id number] [facility] [id number] Social History Type Description Quantity Date Captured Comments Sex Male Smoking Status No Information Chief Complaint And Reason For Visit No Information Reason For Referral Reason For Referral No Information History Of Present Illness Encounter Date Complaint History Of Prese nt Illness No Information Functional Status Date Functional Assessmen t No Information Instructions Date Instruction Additional Infor mation Prescribed activity/exercise edu cation Related to Overweight Dietary needs education Related to Overweight Assessments Type Assessment Date No Information Patient Care Teams Name Effective Dates (start - stop) Status Members No Information
--- OUTSIDE RECORDS SUMMARY | 2024-11-23 01:52 | XMS_ITS | Continuity of Care Document ---
Author Name [facility] Organization [facility] Care Team Providers Care Automatic Mounter Name Role Phone [facility] Unavailable Unavailable Immunizations Combined list of available immunizations from the Department of Defense and Veterans Affairs facilities. Immunization Series Date Given Administered By Site Reaction Lot Number CVX Code Drug Supply Chain Logistics Manager Status Comments Source COVID-19 (PFIZER), MRNA, LNP-S, PF, 30 MCG/0.3 ML DOSE 2 2020 208 complet ed PFR; [id number]; 1 [facility] COVID-19 (PFIZER), MRNA, LNP-S, PF, 30 MCG/0.3 ML DOSE 1 2020 208 complet ed PFR; [id number]; 1 [facility] Encounters Combined list of: 1) Encounters from Department of Veterans Affairs facilities going back up to thelast 18 months. 2) Encounters from the Department of Defense facilities going back up to 280 months. Location Location Details Encounter Type Encounter Number Reason For Visit Attending Provider ADM Date DC Date Status Disposition Source [facility] Outpatient Encounter [id number] 07/02 [facility] N
--- OUTSIDE RECORDS SUMMARY | 2024-11-23 01:52 | XMS_ITS ---
Author Name [facility] Organization [facility] [place] Address [address] [place] [id number] Support Name Relationship Address Phone MICHAELSERENE LANEARET Next of Kin [address] [place] [address] MICHAEL PEPE Emergency Contact [address] [place] [address] Insurance Providers: All historical and current Section Date Range: From patient's date of to the date document was created. This section includes the names of all active insurance providers for the patient. Insurance Provider Type of Coverage Plan Name Start of Policy Coverage End of Policy Coverage Group Number Member ID Insurance Provider's Telephone Number Policy Mack's Name Patient's Relationship to Policy Mack [employer]) PRESCRIPT ION RX PLAN Aug 02, 2007 [id number] [phone] ANGELA BELTRAN EN PATIENT [facility] RAILR OAD EMP Nov 02, 2020 [id number] [phone] ANGELA BELTRAN EN PATIENT [facility] RAILR OAD EMPLO YEES Aug 02, 2007 [id number] [phone] [facility] BELTRAN [facility] RAIL[facility] OAD EMP Nov 02, 2020 [id number] ANGELA BELTRAN EN PATIENT [facility] PREFERRED PROVIDER ORGANIZAT ION (PPO) RAILR OAD EMPLO VANEGAS Aug 02, 2007 [id number] ANGELA BELTRAN EN PATIENT Selected Encounter This section includes the information on record at [place] for the Encounter. Date/Time Encounter Type Encounter Description Reason Pro vider Source Jul 02, 2024 09:47 AM Outpatient Encounter ADMIN PAT ACTIVTIES (MASNONCT) IHE Encounter Template Text not used by [facility] Encounter Notes: All associated encounter notes This section contains the clinical notes associated to the Encounter. Date/Time Encounter Note(s) Provider Source Jul 02, 2024 09:48 AM ADMINISTRATIVE NOT E: LOCAL TITLE: ADMINISTRATIVE STL STANDARD TITLE: ADMINISTRATIVE NOTE DATE OF NOTE: JUL 02, 2024@09:48 ENTRY DATE: JUL 02, 2024@09:48:54 AUTHOR: DEEPAK VELAZQUEZ EXP COSIGNER: URGENCY: STATUS: COMPLETED Minimum Scheduling attempts to contact the have been made. Clinic: NEW PATIENT APPT PRIMARY CARE First Call to - unsuccessful schedulin07/02/2024 Unable to contact [facility], letter sent:07/02/2024 Additional comments:CALLED TO SCHED NEW PT APPT, LMTCB AND SENT LETTER. [facility] was called to offer healthcare with a PCP within the [facility], per enrolled but not seen in project. /joseph/ DEEPAK VELAZQUEZ ADVANCED BINDER ROLLER Signed: 07/02/2024 09:49 DEEPAK VELAZQUEZ [facility] Jul 02, 2024 09:47 AM PRIMARY CARE LETTGerardo RS: LOCAL TITLE: PC NEW PATIENT NO CONTACT LETTER [facility] STANDARD TITLE: PRIMARY CARE LETTERS DATE OF NOTE: JUL 02, 2024@09:47 ENTRY DATE: JUL 02, 2024@09:47:49 AUTHOR: DEEPAK VELAZQUEZ EXP COSIGNER: URGENCY: STATUS: COMPLETED [facility] [address] [place] [address] JUL 02, 2024 BART BELTRAN [address] [place] [phone] Dear Bart Beltran, Thank you for your interest in establishing care with a Primary Care Provider at the [facility]. Your Primary Care Provider is the clinical leader of your Patient Aligned Care Team (PACT). Your PACT Team manages and coordinates your comprehensive health care services. Primary Care includes, but is not limited to: diagnosis and management of acute and chronic health conditions, health promotion, disease prevention, overall care management, post-deployment care, and patient and caregiver education. If you would like more information, please visit [email or web address] . We have been unsuccessful in our attempts to contact you to schedule your initial appointment. Based on your current residence, the clinic recommended for your primary care needs is: [facility] [address] [place] [address] We are happy to accommodate your request with another clinic, if needed. Please call to schedule your initial appointment. Thank you for your service, and we look forward to hearing from you. Sincerely, DEEPAK VELAZQUEZ ADVANCED BINDER ROLLER BART BELTRAN SHONNITA [facility]
--- OUTSIDE RECORDS SUMMARY | 2024-11-24 01:53 | XMS_ITS | Data Portability ---
Author Organization [facility], Main Office Address [address] [place] [address] Assessment No assessment recorded. Plan of Treatment Reminders Order Date Submit Date Provider Last Modified By Organization Details Last Modified Time Details Appointments None record ed. Lab None record ed. Referral None record ed. Procedures None record ed. Surgeries None record ed. Imaging XR, hand, 3 or more view 023 02/04/20 23 [email or web address] [facility], [address], [place], [address], 3 10:23:56 Medication Orders None record ed. Patient TargetsNo targets recorded. Patient InstructionsNo instructions recorded. Reason for Referral None Reported. Results Created Date Observation Date Name Description Value Unit Range Abnormal Flag Note LastModifiedBy Organization Detail LastModifiedTime 02/04/20 23 XR, hand, 3 or more view No observ ation record ed. [email or web address] [facility] [address], [place], [address], 02/03/2023 10:05:26 Result Notes None recorded. 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 Procedures Surgical History Date Name Laterality Status Provider Name and Address Organization Details Recorded Time Hand completed Aaron Salazar NELLI [place] [facility] [employer] [facility] 02/03/2023 09:22:59 Knee completed NELLI Hutton [place] [facility] [employer] [facility] 02/03/2023 09:23:05 Imaging Results Imaging Date Name Status LastModified by Organiz ation Details LastModified Time 02/03/2023 XR, hand, 3 or more view completed [email or web address] [facility] [address], [place], [address], 02/03/2023 10:05:26 Procedure Notes None recorded. Medical [...] Updated DateTime 02/03/2023 177.8 cm 30.1 kg/m2 67281.4 g NELLI Hutton [facility] [employer] 02/03/2023 09:22:00 Social History Question Answer Notes LastModified by Organizat ion Details LastModified Time Tobacco Smoking Status Never Smoker NELLI Hutton [facility] [employer] 02/03/2023 09:22:49 What Is Your Level Of [...] SNOMED-CT Code Diagnosis ICD10 Code Diagnosis Note [id number] Augustin Callahan MD [facility] [address] [place] [address] 02/03/2023 09:11:32 02/03/2023 10:23:56 Pain of left hand 2501173369 33331 M79.642 Arthritis of first carpometacarpal joint of left hand 7230772120 431426 M13.842 patient ended up with a bit [...] Mack Member ID Guarantor Name 02/03/2023 1 [place] Bart Beltran [id number] Bart Beltran 02/03/2023 2 [facility] (MEDICARE SUPPLEMENT) [id number] Bart Soodluis eduardo [id number] Bart Wise Barrieluis eduardo Notes Date Note [...] pain with certain activities Augustin Callahan MD [address] [place] [address], [place] [address], [place], [address], [facility] [employer] 02/03/2023 10:06:37
== END 2024-11-20 16:05 | disposition home health service (06) | DRG 470 ==
LOC: ANHSURGERY 09:26 → ANH3MEDSUR 09:26
PROVIDERS: Nurse Practitioner Family; Physician Assistant; Admitting Provider Orthopaedic Surgery; PCP Internal Medicine; Visit Provider Orthopaedic Surgery
PROC: 0SRD0J9 Replacement of Left Knee Joint with Synthetic Substitute, Cemented, Open Approach (ICD-10-PCS; CPT 27447; principal; 2024-11-16 10:30)
DX: M17.12 Unilateral primary osteoarthritis, left knee (principal); I95.2 Hypotension due to drugs; T50.915A Adverse effect of multiple unspecified drugs, medicaments and biological substances, initial encounter; K21.9 Gastro-esophageal reflux disease without esophagitis
CPT/HCPCS: 36415; 73560; 80048; 80053; 82948; 83735; 85025; 85027; 97110; 97116; 97161; 97165; 97530; 97535; A9270; C1713; C1776; G0378; J0171; J0690; J1100; J1885; J2250; J2270; J2405; J2704; J2795; J3010; J7030; J7040; J7120

== ENCOUNTER 2025-05-03 07:15 | Outpatient (CLI) | payer MEDICARE, OTHER, SELFPAY ==
--- OUTSIDE RECORDS SUMMARY | 2025-05-03 07:22 | XMS_ITS | Data Portability ---
Author Organization [facility], Main Office Address [address] [place] [address] Assessment No assessment recorded. Plan of Treatment Reminders Order Date Submit Date Provider Last Modified By Organization Details Last Modified Time Details Appointments None record ed. Lab None record ed. Referral None record ed. Procedures None record ed. Surgeries None record ed. Imaging XR, hand, 3 or more view 023 02/04/20 23 [email or web address] [facility], [address], [place], [address], 3 10:23:56 Medication Orders None record ed. Patient TargetsNo targets recorded. Patient InstructionsNo instructions recorded. Reason for Referral None Reported. Results Created Date Observation Date Name Description Value Unit Range Abnormal Flag Note LastModifiedBy Organization Detail LastModifiedTime 02/04/20 23 XR, hand, 3 or more view No observ ation record ed. [email or web address] [facility] [address] [facility] [address], [place], [address], 02/03/2023 10:05:26 Result Notes None recorded. Problems Name Problem SNOMED Code Status Onset Date Resolution Date Notes Provider Name and Address Organization Details Recorded Time Pain of left hand 4197940660418 03 Active 2022 NELLI Hutton null, [facility] 09:23:26 Arthritis of first carpometaca rpal joint of left hand 0218293624221 103 Active 2022 Augustin Callahan MD [address] [place] [address], [facility] [[email or web address] [address], [place], [address] , [facility] 10:05:33 Problem Notes None recorded. Procedures Surgical History Date Name Laterality Status Provider Name and Address Organization Details Recorded Time Hand completed NELLI Hutton [facility] 02/03/2023 09:22:59 Knee completed NELLI Hutton [facility] 02/03/2023 09:23:05 Imaging Results None recorded. Procedure Notes None recorded. Medical Equipment None [...] Updated DateTime 02/03/2023 177.8 cm 30.1 kg/m2 86597.4 g NELLI Hutton [place] [facility] [place] [employer] [facility] 02/03/2023 09:22:00 Social History None recorded. Functional Status Question Answer Note LastModified by Organizat ion Details LastModified Time What is your level of alcohol consumption? Occasional [email or web address] Information not available 02/03/2023 Mental Status None recorded. Family History Relationship Description Onset Age of this Age Resolved Age Notes LastModified by Organization Details LastModified Time Mother Hypertensive disorder [email or web address] Not available 2022 09:22:35 Medical History Condition Response ARTHRITIS Y HYPERTENSION Y Past Encounters Encounter ID Performer Location Encounter Start Date Encounter Closed Date Diagnosis/Indication Diagnosis SNOMED-CT Code Diagnosis ICD10 Code Diagnosis Note [id number] Augustin Callahan MD [facility] [address] [place] [address] 02/03/2023 09:11:32 02/03/2023 10:23:56 Pain of left hand 9382537032 42415 M79.642 Arthritis of first carpometacarpal joint of left hand 6636727590 800393 M13.842 patient ended up with a bit [...] Concerns Section Related Observation LastModified by Organization Detai ls LastModified Time None Recorded Concern Status LastModified by Organization Details LastModified Time None Recorded Advance Directives Directive None Recorded Payers Insurance Date Sequence Insurance Name Policy Number Policy Mack Covered Member ID Mack Member ID Guarantor Name 02/03/2023 1 [facility] [id number] Bart Beltran [id number] Bart Beltran 02/09/2023 2 [facility] (MEDICARE SUPPLEMENT) [id number] Bart Beltran [id number] Bart Beltran 02/03/2023 1 [place] Bart Beltran [id number] Bart Beltran 02/09/2023 [facility] - [facility]IC[facility] (MEDICARE) Bart Beltran [id number] Bart Beltran Notes Date Note Type Note Provider Name [...] pain with certain activities Augustin Callahan MD [facility] [address], [address] [address], [place], [address], [place] [facility] [employer] 02/03/2023 10:06:37
[2025-05-03 07:57] LABS: Alanine Aminotransferase 28 U/L (6-50); Albumin Level 4.2 g/dL (3.5-5.1); Alkaline Phosphatase 56 U/L (38-126); Anion Gap 9 mmol/L (4-12); Aspartate Amino Transferase 32 U/L (17-59); Bilirubin,Total 0.6 mg/dL (0.2-1.3); Blood Urea Nitrogen 24 mg/dL (9-20); Calcium 9.4 mg/dL (8.4-10.2); Carbon Dioxide 27 mmol/L (22-30); Chloride 106 mmol/L (98-107); Cholesterol 163 mg/dL (0-200); Estimated Glomerular Filt Rate > 60; Glucose 117 mg/dL (65-110); HDL Direct 49 mg/dL; Potassium 3.9 mmol/L (3.4-5.0); Sodium 142 mmol/L (137-145); Total Protein 7.4 g/dL (6.3-8.2); Triglycerides 125 mg/dL (<150)
[2025-05-03 08:27] LABS: Prostate Specific Antigen 0.9 ng/mL (< OR = 4.0)
== END 2025-05-03 07:16 | disposition home or self-care (01) ==
PROVIDERS: PCP Internal Medicine; Visit Provider Nurse Practitioner
DX: E78.5 Hyperlipidemia, unspecified (principal); Z12.5 Encounter for screening for malignant neoplasm of prostate
CPT/HCPCS: 36415; 80053; 80061; 84153; G0103

== ENCOUNTER 2025-05-10 07:29 | Outpatient (CLI) | payer MEDICARE, OTHER, SELFPAY ==
[2025-05-10 08:01] LABS: Hematocrit 42.5 % (42.0-52.0); Hemoglobin 14.0 g/dL (14.0-18.0); Immature Granulocyte Percent A 0.2 % (0-0.5); Lymphocytes Absolute Auto 1.87 K/mm3 (0.9-3.2); Mean Corpuscular HGB Conc 32.9 g/dl (32-36); Mean Corpuscular Hemoglobin 29.5 pg (26-34); Mean Corpuscular Volume 89.7 fl (80-100); Nucleated Red Blood Cells Absolute Auto 0.000 K/mm3 (0.0-0.012); Nucleated Red Blood Cells Perc 0.0 % (0.0-0.2); Platelet Count Result 241 k/mm3 (150-375); Red Blood Count 4.74 M/mm3 (4.6-6.20); White Blood Count 5.5 K/mm3 (4.5-10.0)
[2025-05-10 10:13] LABS: Thyroid Stimulating Hormone 1.300 uIU/mL (0.465-4.680)
[2025-05-10 17:56] LABS: Hemoglobin A1C 5.7 % (<5.7)
== END 2025-05-10 07:30 | disposition home or self-care (01) ==
PROVIDERS: PCP Internal Medicine; Visit Provider Internal Medicine
DX: R73.9 Hyperglycemia, unspecified (principal); E03.9 Hypothyroidism, unspecified; R63.4 Abnormal weight loss
CPT/HCPCS: 36415; 83036; 84443; 85025